=== PATIENT | male | born 1935 | race Caucasian/White ===

== ENCOUNTER 2020-08-25 13:37 | Inpatient (IN) | payer OTHER ==
[2020-08-25 13:45] VITALS: BMI 27.8
[2020-08-25 14:54] LABS: BASO % 0.5 % (0-2.0); EOS % 0.4 % (0-4.5); HEMATOCRIT 35.1 % (35.4-49); HEMOGLOBIN 11.6 GM/dL (11.7-16.9); LYMPH % 9.9 % (8-40); MCH 30.6 pg (25.7-33.7); MEAN CELL VOLUME 92.8 fl (80-96); MEAN PLT VOLUME 7.8 fl (7.5-11.1); MONO % 6.6 % (3.8-10.2); NEUT % 82.6 % (42.8-82.8); PLATELET COUNT 469 K/MM3 (134-434); RBC 3.78 M/mm3 (4.00-5.60); RDW 15.7 % (11.9-15.9); WHITE BLOOD COUNT 12.4 K/mm3 (4.0-10.0)
[2020-08-25 15:01] LABS: INR 1.77 (0.83-1.09); PROTHROMBIN TIME (PATIENT) 21.1 SEC (9.7-13.0)
[2020-08-25 15:03] LABS: ACTIVATED PTT 41.1 SECONDS (25.2-36.5)
[2020-08-25 15:14] LABS: CALCIUM 8.9 mg/dL (8.5-10.1)
[2020-08-25 15:15] LABS: ALBUMIN 2.2 g/dl (3.4-5.0); BLOOD UREA NITROGEN 29.8 mg/dL (7-18)
[2020-08-25 15:18] LABS: CREATININE 2.1 mg/dL (0.55-1.3)
[2020-08-25 15:19] LABS: BILIRUBIN,TOTAL 0.8 mg/dL (0.2-1); TOT PROT 7.8 g/dl (6.4-8.2)
[2020-08-25] MEDS ORDERED: ACETAMINOPHEN 1000 MG/100 ML BAG IVPB ONE (15:20)
[2020-08-25] MEDS ORDERED: SODIUM CHLORIDE 1,000 ML IV STA (15:20)
[2020-08-25] MEDS ORDERED: ACETAMINOPHEN INJECTION 100 ML IVPB ONE (15:48)
[2020-08-25] MEDS ORDERED: PIPERACILLIN/TAZOB 4.5 GM 4.5 GM in DEXTROSE 5%-WATER 100 ML IVPB ONE (16:57)
[2020-08-25] MEDS ORDERED: VANCOMYCIN 1,000 MG in DEXTROSE 5%-WATER - 250 ML IVPB ONE (16:57)
[2020-08-25 18:09] LABS: BF WBC & OTHER NUCLEATED CELLS 31800 /mm3
[2020-08-25] MEDS ORDERED: ACETAMINOPHEN 325 MG TABLET (FP) PO PRN (18:52)
[2020-08-25] MEDS ORDERED: PIPERACILLIN/TAZOB 4.5 GM 4.5 GM/100 ML BAG IVPB ONE (19:07)
[2020-08-25] MEDS ORDERED: VANCOMYCIN 1 GRAM (PRE-DOCKED) 1,000 MG/250 ML BAG IVPB ONE (19:07)
[2020-08-25 19:38] LABS: BODY FLUID MONOCYTE 9 %
[2020-08-25] MEDS: SEVELAMER CARBONATE 800 MG TAB (FP) PO SCH (22:49)
[2020-08-26] MEDS: ROSUVASTATIN CA 10 MG TABLET PO SCH ×2 (00:17→21:24)
[2020-08-26 00:50] LABS: EPI CELLS 7 /uL (0-25.1); HYALINE CASTS 1 /uL (0-3.1); PH,URINE 5.5 (5.0-8.0); URINE APPEARANCE CLEAR; URINE BACTERIA 23 /uL (0-1359); URINE BILIRUBIN NEGATIVE (NEGATIVE); URINE COLOR YELLOW; URINE GLUCOSE (UA) NEGATIVE (NEGATIVE); URINE KETONE NEGATIVE (NEGATIVE); URINE LEUK ESTERASE NEGATIVE (NEGATIVE); URINE NITRITE NEGATIVE (NEGATIVE); URINE PROTEIN 1+ (NEGATIVE); URINE RBC 28 /uL (0-23.9); URINE UROBILINOGEN 0.2 mg/dL (0.2-1.0); URINE WBC 7 /uL (0-25.8)
[2020-08-26] MEDS ORDERED: PIPERACILLIN/TAZOB 2.25 GM 2.25 GM/50 ML BAG IVPB ONE ×3 (01:44→17:36)
[2020-08-26] MEDS ORDERED: PIPERACILLIN/TAZOB 2.25 GM 2.25 GM in DEXTROSE 5%-WATER - 50 ML IVPB SCH (02:00)
[2020-08-26] MEDS: PIPERACILLIN/TAZOB 2.25 GM 2.25 GM in DEXTROSE 5%-WATER - 50 ML IVPB SCH ×3 (02:27→17:20)
[2020-08-26 07:52] LABS: BASO % 0.4 % (0-2.0); EOS % 1.1 % (0-4.5); HEMATOCRIT 31.1 % (35.4-49); HEMOGLOBIN 10.2 GM/dL (11.7-16.9); LYMPH % 10.4 % (8-40); MCH 30.4 pg (25.7-33.7); MCHC 32.8 g/dl (32.0-35.9); MEAN CELL VOLUME 92.7 fl (80-96); MEAN PLT VOLUME 7.4 fl (7.5-11.1); MONO % 5.9 % (3.8-10.2); NEUT % 82.2 % (42.8-82.8); PLATELET COUNT 448 K/MM3 (134-434); RBC 3.35 M/mm3 (4.00-5.60); RDW 15.8 % (11.9-15.9); WHITE BLOOD COUNT 12.2 K/mm3 (4.0-10.0)
[2020-08-26 07:58] LABS: CALCIUM 8.9 mg/dL (8.5-10.1)
[2020-08-26 07:59] LABS: ALBUMIN 2.2 g/dl (3.4-5.0); BLOOD UREA NITROGEN 28.3 mg/dL (7-18)
[2020-08-26 08:02] LABS: CREATININE 1.9 mg/dL (0.55-1.3); URIC ACID 6.1 mg/dL (2.6-7.2)
[2020-08-26 08:04] LABS: BILIRUBIN,TOTAL 0.5 mg/dL (0.2-1); TOT PROT 6.6 g/dl (6.4-8.2)
[2020-08-26] MEDS: SEVELAMER CARBONATE 800 MG TAB (FP) PO SCH ×3 (09:11→17:47)
[2020-08-26] MEDS ORDERED: LISINOPRIL 5 MG TABLET PO SCH (10:00)
[2020-08-26] MEDS: amLODIPine BESYLATE 5 MG TABLET (FP) PO SCH (10:13)
[2020-08-26 10:30] LABS: CRYSTALS,SYNOVIAL FLUID PRESENT
[2020-08-27] MEDS ORDERED: DEXTROSE 5%-WATER - 50 ML IVPB ONE ×2 (01:47→08:53)
[2020-08-27] MEDS ORDERED: PIPERACILLIN/TAZOBACTAM 2.25 GM VIAL IVPB ONE ×2 (01:47→08:52)
[2020-08-27] MEDS: PIPERACILLIN/TAZOB 2.25 GM 2.25 GM in DEXTROSE 5%-WATER - 50 ML IVPB SCH ×2 (01:55→09:35)
[2020-08-27 08:13] LABS: HEMOGLOBIN 11.2 GM/dl (11.7-16.9); MCH 30.2 pg (25.7-33.7); MCHC 32.8 g/dl (32.0-35.9); MEAN CELL VOLUME 92.1 fl (80-96); MEAN PLT VOLUME 7.3 fl (7.5-11.1); PLATELET COUNT 551 K/MM3 (134-434); RDW 14.7 % (11.9-15.9); WHITE BLOOD COUNT 10.8 K/mm3 (4.0-10.8)
[2020-08-27 08:17] LABS: ALBUMIN 2.3 g/dl (3.4-5.0); BILIRUBIN,TOTAL 0.5 mg/dl (0.2-1); CREATININE 2.2 mg/dl (0.55-1.3); TOT PROT 6.6 g/dl (6.4-8.2)
[2020-08-27] MEDS: SEVELAMER CARBONATE 800 MG TAB (FP) PO SCH ×3 (09:34→17:34)
[2020-08-27] MEDS: amLODIPine BESYLATE 5 MG TABLET (FP) PO SCH (09:35)
[2020-08-27 09:45] LABS: PLATELET ESTIMATE SLT INCREASE
[2020-08-27] MEDS ORDERED: COLCHICINE 0.6 MG CAP PO ONE (11:30)
[2020-08-27] MEDS: POLYETHYLENE GLYCOL 3350 119 GM BTL PO SCH ×2 (12:45→22:49)
[2020-08-27] MEDS: RIVAROXABAN 10 MG TABLET PO SCH (14:55)
[2020-08-27] MEDS: ROSUVASTATIN CA 10 MG TABLET PO SCH (22:49)
[2020-08-28 06:49] VITALS: BP 153/72; PULSE 69; TEMP 97.9
[2020-08-28] MEDS: SEVELAMER CARBONATE 800 MG TAB (FP) PO SCH (08:10)
[2020-08-28 08:22] LABS: BASO % 0.2 % (0-2.0); HEMATOCRIT 29.6 % (35.4-49); HEMOGLOBIN 10.1 GM/dl (11.7-16.9); LYMPH % 14.9 % (8-40); MCH 30.8 pg (25.7-33.7); MCHC 33.9 g/dl (32.0-35.9); MEAN CELL VOLUME 90.9 fl (80-96); MEAN PLT VOLUME 7.2 fl (7.5-11.1); MONO % 4.2 % (3.8-10.2); NEUT % 78.7 % (42.8-82.8); PLATELET COUNT 545 K/MM3 (134-434); RBC 3.26 M/mm3 (4.00-5.60); RDW 14.3 % (11.9-15.9); WHITE BLOOD COUNT 10.7 K/mm3 (4.0-10.8)
[2020-08-28 08:31] LABS: ALBUMIN 2.1 g/dl (3.4-5.0); BILIRUBIN,TOTAL 0.5 mg/dl (0.2-1); CALCIUM 8.6 mg/dl (8.5-10); MAGNESIUM 1.6 mg/dL (1.8-2.4); TOT PROT 5.7 g/dl (6.4-8.2)
[2020-08-28] MEDS ORDERED: MAGNESIUM SULF 50% (8.12 MEQ/2 ML-1 GM VIAL) IVPB ONE (09:42)
[2020-08-28] MEDS ORDERED: MAGNESIUM SULFATE IN WATER 2 GM/50 ML IVPB IVPB ONE (10:00)
[2020-08-28] MEDS ORDERED: COLCHICINE 0.6 MG TAB PO ONE (10:00)
[2020-08-28] MEDS ORDERED: LISINOPRIL 5 MG TABLET PO SCH (10:15)
[2020-08-28] MEDS ORDERED: HYDROCHLOROTHIAZIDE 25 MG TABLET (FP) PO SCH (10:15)
[2020-08-28] MEDS: RIVAROXABAN 10 MG TABLET PO SCH (10:43)
[2020-08-28] MEDS: amLODIPine BESYLATE 5 MG TABLET (FP) PO SCH (10:44)
[2020-08-28] MEDS: POLYETHYLENE GLYCOL 3350 119 GM BTL PO SCH (10:44)
[2020-08-28] MEDS ORDERED: PT OWN MED DRAWER 7, Y5N ONE (10:48)
== END 2020-08-28 15:23 | disposition home or self-care (01) | DRG 554 ==
LOC: JER 13:37 → JERBED 16:59 → FM/S 08-26 21:01
PROVIDERS: ADMIT Internal Medicine; ATTEND Nurse Practitioner Acute Care
PROC: 0S9D3ZX Drainage of Left Knee Joint, Percutaneous Approach, Diagnostic (ICD-10-PCS; principal; 2020-08-25)
DX: M10.9 Gout, unspecified (principal); E87.5 Hyperkalemia; I48.91 Unspecified atrial fibrillation; M25.462 Effusion, left knee; Z79.01 Long term (current) use of anticoagulants; E78.5 Hyperlipidemia, unspecified; I12.9 Hypertensive chronic kidney disease with stage 1 through stage 4 chronic kidney disease, or unspecified chronic kidney disease; N18.32 Chronic kidney disease, stage 3b; R29.6 Repeated falls
CPT/HCPCS: 36415; 71046-TC-FY; 73562-TC-LT-FY; 73660-TC-LT-FY; 73721-LT-TC; 76775-TC; 80053; 80061; 81003; 82728; 83036; 83605; 83615; 83721; 83735; 84132; 84443; 84484; 84550; 85025; 85610; 85651; 85730; 86140; 86850; 86900; 86901; 87040; 87070; 87075; 87086; 87205; 89060; 93005; 93010; 97116-GP; 97163-GP; 99285-25; C9803; G0480; J0131; U0003

== ENCOUNTER 2021-01-08 14:21 | Observation (INO) | payer OTHER ==
[2021-01-08 16:33] LABS: BASO % 0.6 % (0-2.0); EOS % 3.1 % (0-4.5); HEMATOCRIT 35.5 % (35.4-49); HEMOGLOBIN 11.8 GM/dL (11.7-16.9); LYMPH % 27.4 % (8-40); MCH 30.2 pg (25.7-33.7); MCHC 33.2 g/dl (32.0-35.9); MEAN CELL VOLUME 91.2 fl (80-96); MEAN PLT VOLUME 8.8 fl (7.5-11.1); MONO % 8.9 % (3.8-10.2); PLATELET COUNT 210 K/MM3 (134-434); RBC 3.89 M/mm3 (4.00-5.60); RDW 16.8 % (11.9-15.9)
[2021-01-08 17:06] LABS: ALBUMIN 3.5 g/dl (3.4-5.0); BLOOD UREA NITROGEN 66.2 mg/dL (7-18); CALCIUM 8.7 mg/dL (8.5-10.1)
[2021-01-08 17:10] LABS: BILIRUBIN,TOTAL 0.4 mg/dL (0.2-1); TOT PROT 6.7 g/dl (6.4-8.2)
[2021-01-08 17:13] LABS: N-TERMINAL BNP 2582.7 pg/ml (5-450)
[2021-01-08] MEDS ORDERED: CALCIUM GLUCONATE 10% - 1,000 MG/10 ML VIAL IVPUSH ONE (18:05)
[2021-01-08] MEDS ORDERED: INSULIN REGULAR HUMAN 100 UNITS/ML *VIAL IVPUSH ONE (18:05)
[2021-01-08] MEDS ORDERED: DEXTROSE 50%-WATER - 25 GM/50 ML VIAL IVPUSH ONE (18:06)
[2021-01-08] MEDS ORDERED: FUROSEMIDE 20 MG TABLET (FP) PO ONE (18:42)
[2021-01-08] MEDS ORDERED: CALCIUM GLUCONATE 10% - 1,000 MG/10 ML VIAL ONE (19:20)
[2021-01-08] MEDS ORDERED: SODIUM ZIRCONIUM CYCLOSILICATE (LOKELMA) 5 GM PACKET ONE (19:20)
[2021-01-08] MEDS ORDERED: DEXTROSE 50%-WATER 25 GM/50 ML DISP.SYRIN ONE (19:20)
[2021-01-08] MEDS ORDERED: INSULIN REGULAR HUMAN 100 UNITS/ML *VIAL ONE ×2 (19:21→19:23)
[2021-01-08] MEDS: SODIUM ZIRCONIUM CYCLOSILICATE (LOKELMA) 5 GM PACKET PO SCH (19:36)
[2021-01-09] MEDS ORDERED: HEPARIN NA (PORCINE) 5,000 UNITS/ML 1ML VIAL SQ SCH (02:00)
[2021-01-09 03:04] VITALS: BMI 25.9
[2021-01-09] MEDS ORDERED: amLODIPine BESYLATE 5 MG TABLET (FP) PO ONE (06:00)
[2021-01-09 08:57] LABS: BASO % 0.6 % (0-2.0); EOS % 3.2 % (0-4.5); HEMATOCRIT 35.5 % (35.4-49); HEMOGLOBIN 12.1 GM/dL (11.7-16.9); LYMPH % 22.7 % (8-40); MCH 30.4 pg (25.7-33.7); MEAN CELL VOLUME 89.6 fl (80-96); MONO % 8.9 % (3.8-10.2); NEUT % 64.6 % (42.8-82.8); PLATELET COUNT 213 K/MM3 (134-434); RBC 3.96 M/mm3 (4.00-5.60); RDW 17.1 % (11.9-15.9); WHITE BLOOD COUNT 6.5 K/mm3 (4.0-10.0)
[2021-01-09 09:17] LABS: CALCIUM 8.9 mg/dL (8.5-10.1)
[2021-01-09 09:18] LABS: ALBUMIN 3.3 g/dl (3.4-5.0); BLOOD UREA NITROGEN 64.1 mg/dL (7-18); MAGNESIUM 2.2 mg/dL (1.8-2.4)
[2021-01-09 09:20] LABS: CREATININE 2.7 mg/dL (0.55-1.3)
[2021-01-09 09:21] LABS: PHOSPHOROUS 4.2 mg/dL (2.5-4.9)
[2021-01-09 09:22] LABS: BILIRUBIN,TOTAL 0.6 mg/dL (0.2-1); TOT PROT 6.3 g/dl (6.4-8.2)
[2021-01-09] MEDS: SODIUM ZIRCONIUM CYCLOSILICATE (LOKELMA) 5 GM PACKET PO SCH (09:44)
[2021-01-09] MEDS: FUROSEMIDE 20 MG TABLET (FP) PO SCH (09:44)
[2021-01-09] MEDS: ROSUVASTATIN CA 10 MG TABLET (FP) PO SCH (09:44)
[2021-01-09] MEDS: APIXABAN 2.5 MG TABLET PO SCH ×2 (09:44→21:56)
[2021-01-09] MEDS ORDERED: amLODIPine BESYLATE 5 MG TABLET (FP) PO SCH (10:00)
[2021-01-09] MEDS ORDERED: RIVAROXABAN 10 MG TABLET PO SCH (10:00)
[2021-01-09] MEDS ORDERED: PT OWN MED DRAWER 7, Y5N ONE (10:33)
[2021-01-09] MEDS: COLCHICINE 0.6 MG TAB PO SCH (12:16)
[2021-01-09] MEDS: hydrALAZINE HCL 25 MG TABLET (FP) PO SCH ×2 (13:56→21:56)
[2021-01-10] MEDS: hydrALAZINE HCL 25 MG TABLET (FP) PO SCH ×2 (06:13→14:48)
[2021-01-10 07:25] LABS: BASO % 0.4 % (0-2.0); EOS % 2.8 % (0-4.5); HEMATOCRIT 36.8 % (35.4-49); HEMOGLOBIN 12.4 GM/dL (11.7-16.9); LYMPH % 31.2 % (8-40); MCH 30.3 pg (25.7-33.7); MCHC 33.8 g/dl (32.0-35.9); MEAN CELL VOLUME 89.9 fl (80-96); NEUT % 55.6 % (42.8-82.8); PLATELET COUNT 210 K/MM3 (134-434); RBC 4.09 M/mm3 (4.00-5.60); RDW 16.8 % (11.9-15.9); WHITE BLOOD COUNT 6.7 K/mm3 (4.0-10.0)
[2021-01-10 07:47] LABS: ALBUMIN 3.3 g/dl (3.4-5.0); BLOOD UREA NITROGEN 63.3 mg/dL (7-18)
[2021-01-10 07:50] LABS: CREATININE 2.8 mg/dL (0.55-1.3)
[2021-01-10 07:52] LABS: BILIRUBIN,TOTAL 0.4 mg/dL (0.2-1); TOT PROT 6.7 g/dl (6.4-8.2)
[2021-01-10] MEDS ORDERED: amLODIPine BESYLATE 5 MG TABLET (FP) PO SCH (10:00)
[2021-01-10] MEDS: FUROSEMIDE 20 MG TABLET (FP) PO SCH (11:01)
[2021-01-10] MEDS: APIXABAN 2.5 MG TABLET PO SCH (11:01)
[2021-01-10] MEDS: ROSUVASTATIN CA 10 MG TABLET (FP) PO SCH (11:01)
[2021-01-10] MEDS ORDERED: PT OWN MED DRAWER 7, Y5N ONE (11:06)
[2021-01-10] MEDS: COLCHICINE 0.6 MG TAB PO SCH (11:08)
[2021-01-10 16:06] VITALS: BP 139/87; PULSE 84; TEMP 98.6
== END 2021-01-10 19:10 | disposition home or self-care (01) ==
LOC: JER 14:21 → UNDOADMOB 16:08 → JERBED 16:08 → INTOOBSV 16:08 → J4W 01-09 02:17 → JERBED 01-09 02:17 → J4W 01-10 10:58 → JERBED 01-10 10:58
PROVIDERS: ATTEND Family Medicine
PROC: 3E033GC Introduction of Other Therapeutic Substance into Peripheral Vein, Percutaneous Approach (ICD-10-PCS; principal; 2021-01-10)
PROC: 3E033VG Introduction of Insulin into Peripheral Vein, Percutaneous Approach (ICD-10-PCS; 2021-01-10)
DX: I48.91 Unspecified atrial fibrillation (principal); I13.10 Hypertensive heart and chronic kidney disease without heart failure, with stage 1 through stage 4 chronic kidney disease, or unspecified chronic kidney disease; E78.5 Hyperlipidemia, unspecified; N18.30 Chronic kidney disease, stage 3 unspecified; I45.10 Unspecified right bundle-branch block; I49.5 Sick sinus syndrome; R79.89 Other specified abnormal findings of blood chemistry; E87.5 Hyperkalemia; M25.569 Pain in unspecified knee
CPT/HCPCS: 36415; 71045-TC-FY; 76775-TC; 80053; 82550; 83036; 83735; 83880; 84100; 84439; 84443; 84484; 85025; 93005; 93010; 96374; 96375; 97116-GP; 97161-GP; 99285-25; C9803; G0378; U0003; U0005

== ENCOUNTER 2022-04-22 22:34 | Inpatient (IN) | payer OTHER ==
[2022-04-23 00:51] LABS: BASO % 0.4 % (0-2.0); EOS % 1.2 % (0-4.5); HEMATOCRIT 36.2 % (35.4-49); HEMOGLOBIN 11.9 GM/dL (11.7-16.9); LYMPH % 14.4 % (8-40); MCH 31.2 pg (25.7-33.7); MCHC 32.9 g/dl (32.0-35.9); MEAN PLT VOLUME 8.1 fl (7.5-11.1); PLATELET COUNT 296 10^3/uL (134-434); RDW 17.3 % (11.9-15.9); WHITE BLOOD COUNT 9.3 K/mm3 (4.0-10.0)
[2022-04-23 01:03] LABS: URINE APPEARANCE CLEAR; URINE BILIRUBIN NEGATIVE (NEGATIVE); URINE COLOR YELLOW; URINE GLUCOSE (UA) NEGATIVE (NEGATIVE); URINE KETONE NEGATIVE (NEGATIVE); URINE LEUK ESTERASE NEGATIVE (NEGATIVE); URINE NITRITE NEGATIVE (NEGATIVE); URINE PROTEIN NEGATIVE (NEGATIVE); URINE UROBILINOGEN 0.2 mg/dL (0.2-1.0)
[2022-04-23 01:09] LABS: CHLORIDE 101 mmol/L (98-107); SODIUM 137 mmol/L (136-145)
[2022-04-23 01:11] LABS: CALCIUM 10.4 mg/dL (8.5-10.1)
[2022-04-23 01:12] LABS: ALBUMIN 3.6 g/dl (3.4-5.0); ANION GAP 7 MMOL/L (8-16); BLOOD UREA NITROGEN 65.2 mg/dL (7-18); CO2 29 mmol/L (21-32); GLUCOSE,RANDOM 154 mg/dL (74-106)
[2022-04-23 01:15] LABS: CREATININE 3.8 mg/dL (0.55-1.3); SGOT/AST 28 U/L (15-37); SGPT/ALT 19 U/L (13-61)
[2022-04-23 01:16] LABS: BILIRUBIN,TOTAL 0.5 mg/dL (0.2-1); TOT PROT 7.8 g/dl (6.4-8.2)
[2022-04-23 01:18] LABS: ALK PHOS 86 U/L (45-117)
[2022-04-23] MEDS ORDERED: LACTATED RINGERS SOLUTION 1000 ML INFUS.BAG IV ONE (01:31)
[2022-04-23] MEDS ORDERED: APIXABAN 2.5 MG TABLET ONE (10:10)
[2022-04-23] MEDS: APIXABAN 2.5 MG TABLET PO SCH (10:14)
[2022-04-24] MEDS: APIXABAN 2.5 MG TABLET PO SCH ×3 (01:10→22:00)
[2022-04-24] MEDS ORDERED: MELATONIN 5 MG TABLETS PO ONE (02:01)
[2022-04-24 04:11] VITALS: BMI 25.6
[2022-04-24 08:20] LABS: ALBUMIN 3.2 g/dl (3.4-5.0); CALCIUM 9.7 mg/dL (8.5-10.1)
[2022-04-24 08:23] LABS: CREATININE 3.1 mg/dL (0.55-1.3)
[2022-04-24 08:25] LABS: BILIRUBIN,TOTAL 0.4 mg/dL (0.2-1); TOT PROT 6.9 g/dl (6.4-8.2)
[2022-04-24] MEDS: amLODIPine BESYLATE 5 MG TABLET (FP) PO SCH (15:26)
[2022-04-24] MEDS: metoPROLOL SUCCINATE 25 MG TAB.SR.24H (FP) PO SCH (15:26)
[2022-04-24] MEDS ORDERED: ALBUTEROL SO4 HFA INHALER IH PRN (15:30)
[2022-04-24] MEDS: ACETAMINOPHEN 325 MG TABLET (FP) PO PRN (22:03)
[2022-04-24] MEDS: ATORVASTATIN CA 20 MG TABLET (FP) PO SCH (22:03)
[2022-04-25] MEDS: glipiZIDE-XL 2.5 MG TAB.ER.24 PO SCH (06:52)
[2022-04-25 07:29] LABS: BASO % 0.5 % (0-2.0); EOS % 4.3 % (0-4.5); HEMATOCRIT 34.5 % (35.4-49); HEMOGLOBIN 11.1 GM/dL (11.7-16.9); LYMPH % 27.1 % (8-40); MCH 31.3 pg (25.7-33.7); MCHC 32.2 g/dl (32.0-35.9); MEAN CELL VOLUME 97.2 fl (80-96); MEAN PLT VOLUME 8.4 fl (7.5-11.1); MONO % 8.5 % (3.8-10.2); NEUT % 59.6 % (42.8-82.8); PLATELET COUNT 248 10^3/uL (134-434); RBC 3.55 M/mm3 (4.00-5.60); RDW 17.5 % (11.9-15.9); WHITE BLOOD COUNT 6.5 K/mm3 (4.0-10.0)
[2022-04-25 08:00] LABS: CALCIUM 9.7 mg/dL (8.5-10.1)
[2022-04-25 08:01] LABS: ALBUMIN 3.1 g/dl (3.4-5.0)
[2022-04-25 08:03] LABS: CREATININE 3.3 mg/dL (0.55-1.3)
[2022-04-25 08:04] LABS: BILIRUBIN,TOTAL 0.4 mg/dL (0.2-1)
[2022-04-25 08:05] LABS: TOT PROT 6.5 g/dl (6.4-8.2)
[2022-04-25] MEDS: ACETAMINOPHEN 325 MG TABLET (FP) PO PRN ×2 (09:52→22:16)
[2022-04-25] MEDS: amLODIPine BESYLATE 5 MG TABLET (FP) PO SCH (09:53)
[2022-04-25] MEDS: metoPROLOL SUCCINATE 25 MG TAB.SR.24H (FP) PO SCH (09:53)
[2022-04-25] MEDS: APIXABAN 2.5 MG TABLET PO SCH ×2 (09:53→22:16)
[2022-04-25] MEDS: COLCHICINE 0.6 MG CAPSULE PO SCH (11:03)
[2022-04-25] MEDS: ATORVASTATIN CA 20 MG TABLET (FP) PO SCH (22:16)
[2022-04-26] MEDS: glipiZIDE-XL 2.5 MG TAB.ER.24 PO SCH (06:23)
[2022-04-26] MEDS: ACETAMINOPHEN 325 MG TABLET (FP) PO PRN (08:23)
[2022-04-26] MEDS: amLODIPine BESYLATE 5 MG TABLET (FP) PO SCH (09:28)
[2022-04-26] MEDS: APIXABAN 2.5 MG TABLET PO SCH ×2 (09:29→21:22)
[2022-04-26] MEDS: metoPROLOL SUCCINATE 25 MG TAB.SR.24H (FP) PO SCH (09:29)
[2022-04-26] MEDS ORDERED: COLCHICINE 0.6 MG TAB PO SCH (10:26)
[2022-04-26] MEDS: COLCHICINE 0.6 MG CAPSULE PO SCH (12:45)
[2022-04-26] MEDS: COLCHICINE 0.6 MG TAB PO SCH (12:46)
[2022-04-26] MEDS: ATORVASTATIN CA 20 MG TABLET (FP) PO SCH (21:22)
[2022-04-27] MEDS: glipiZIDE-XL 2.5 MG TAB.ER.24 PO SCH (06:09)
[2022-04-27 07:55] LABS: BASO % 0.5 % (0-2.0); EOS % 3.9 % (0-4.5); HEMATOCRIT 33.4 % (35.4-49); HEMOGLOBIN 10.8 GM/dL (11.7-16.9); LYMPH % 24.1 % (8-40); MCHC 32.3 g/dl (32.0-35.9); MEAN CELL VOLUME 96.1 fl (80-96); MEAN PLT VOLUME 8.3 fl (7.5-11.1); MONO % 6.7 % (3.8-10.2); NEUT % 64.8 % (42.8-82.8); PLATELET COUNT 255 10^3/uL (134-434); RBC 3.48 M/mm3 (4.00-5.60); RDW 17.7 % (11.9-15.9); WHITE BLOOD COUNT 7.6 K/mm3 (4.0-10.0)
[2022-04-27] MEDS: ACETAMINOPHEN 325 MG TABLET (FP) PO PRN ×2 (08:16→17:28)
[2022-04-27 08:57] LABS: CALCIUM 10.2 mg/dL (8.5-10.1)
[2022-04-27 08:58] LABS: ALBUMIN 3.3 g/dl (3.4-5.0); BLOOD UREA NITROGEN 65.9 mg/dL (7-18)
[2022-04-27 09:02] LABS: CREATININE 3.1 mg/dL (0.55-1.3); URIC ACID 9.2 mg/dL (2.6-7.2)
[2022-04-27 09:03] LABS: BILIRUBIN,TOTAL 0.3 mg/dL (0.2-1); TOT PROT 6.8 g/dl (6.4-8.2)
[2022-04-27] MEDS: COLCHICINE 0.6 MG TAB PO SCH (09:45)
[2022-04-27] MEDS: APIXABAN 2.5 MG TABLET PO SCH ×2 (09:46→21:25)
[2022-04-27] MEDS: amLODIPine BESYLATE 5 MG TABLET (FP) PO SCH (09:46)
[2022-04-27] MEDS: metoPROLOL SUCCINATE 25 MG TAB.SR.24H (FP) PO SCH ×2 (09:46→09:48)
[2022-04-27] MEDS: ATORVASTATIN CA 20 MG TABLET (FP) PO SCH (21:25)
[2022-04-28] MEDS: glipiZIDE-XL 2.5 MG TAB.ER.24 PO SCH (06:02)
[2022-04-28] MEDS: ACETAMINOPHEN 325 MG TABLET (FP) PO PRN ×2 (08:41→14:49)
[2022-04-28 09:13] LABS: CALCIUM 9.6 mg/dL (8.5-10.1)
[2022-04-28 09:14] LABS: BLOOD UREA NITROGEN 60.8 mg/dL (7-18)
[2022-04-28 09:16] LABS: URIC ACID 8.5 mg/dL (2.6-7.2)
[2022-04-28 09:17] LABS: CREATININE 2.6 mg/dL (0.55-1.3)
[2022-04-28 09:18] LABS: BILIRUBIN,TOTAL 0.3 mg/dL (0.2-1); TOT PROT 6.3 g/dl (6.4-8.2)
[2022-04-28 09:29] LABS: EOS % 4.7 % (0-4.5); HEMATOCRIT 31.6 % (35.4-49); HEMOGLOBIN 10.6 GM/dL (11.7-16.9); MCH 32.3 pg (25.7-33.7); MCHC 33.5 g/dl (32.0-35.9); MEAN CELL VOLUME 96.6 fl (80-96); MONO % 7.7 % (3.8-10.2); NEUT % 58.6 % (42.8-82.8); PLATELET COUNT 235 10^3/uL (134-434); RBC 3.27 M/mm3 (4.00-5.60); RDW 17.8 % (11.9-15.9); WHITE BLOOD COUNT 5.5 K/mm3 (4.0-10.0)
[2022-04-28] MEDS: amLODIPine BESYLATE 5 MG TABLET (FP) PO SCH (09:49)
[2022-04-28] MEDS: COLCHICINE 0.6 MG TAB PO SCH (09:49)
[2022-04-28] MEDS: metoPROLOL SUCCINATE 25 MG TAB.SR.24H (FP) PO SCH (09:50)
[2022-04-28] MEDS: APIXABAN 2.5 MG TABLET PO SCH ×2 (09:50→21:44)
[2022-04-28] MEDS: ATORVASTATIN CA 20 MG TABLET (FP) PO SCH (21:44)
[2022-04-29] MEDS: glipiZIDE-XL 2.5 MG TAB.ER.24 PO SCH (06:22)
[2022-04-29] MEDS: APIXABAN 2.5 MG TABLET PO SCH (09:10)
[2022-04-29] MEDS: COLCHICINE 0.6 MG TAB PO SCH (09:10)
[2022-04-29] MEDS: amLODIPine BESYLATE 5 MG TABLET (FP) PO SCH (09:10)
[2022-04-29] MEDS: ACETAMINOPHEN 325 MG TABLET (FP) PO PRN (09:12)
[2022-04-29] MEDS: metoPROLOL SUCCINATE 25 MG TAB.SR.24H (FP) PO SCH (11:23)
[2022-04-29 15:17] VITALS: BP 127/64; PULSE 50; RESP 18; TEMP 97.4
== END 2022-04-29 18:49 | DRG 683 ==
LOC: JER 22:34 → JERBED 04-23 01:57 → J4W 04-24 01:29
PROVIDERS: ADMIT Internal Medicine; ATTEND Family Medicine
DX: N17.9 Acute kidney failure, unspecified (principal); I13.0 Hypertensive heart and chronic kidney disease with heart failure and stage 1 through stage 4 chronic kidney disease, or unspecified chronic kidney disease; I50.32 Chronic diastolic (congestive) heart failure; I24.8 Other forms of acute ischemic heart disease; N18.4 Chronic kidney disease, stage 4 (severe); I48.0 Paroxysmal atrial fibrillation; E87.5 Hyperkalemia
CPT/HCPCS: 36415; 70450-TC; 71045-TC-FY; 72125-TC; 72170-TC-FY; 76775-TC; 80048; 80053; 80307; 81003; 84484; 84550; 85025; 93005; 93010; 93880-TC; 97116-GP; 97162-GP; 99285-25; C9803-CS; U0003; U0005

== ENCOUNTER 2022-06-22 15:26 | Observation (INO) | payer OTHER ==
[2022-06-22 15:32] VITALS: BMI 23.6
[2022-06-22 22:56] LABS: BASO % 0.7 % (0-2.0); EOS % 1.5 % (0-4.5); HEMATOCRIT 36.4 % (35.4-49); HEMOGLOBIN 12.1 GM/dL (11.7-16.9); LYMPH % 25.4 % (8-40); MCH 31.7 pg (25.7-33.7); MCHC 33.2 g/dl (32.0-35.9); MEAN CELL VOLUME 95.3 fl (80-96); MEAN PLT VOLUME 8.5 fl (7.5-11.1); MONO % 9.3 % (3.8-10.2); NEUT % 63.1 % (42.8-82.8); PLATELET COUNT 305 10^3/uL (134-434); RBC 3.82 M/mm3 (4.00-5.60); RDW 16.9 % (11.9-15.9); WHITE BLOOD COUNT 6.8 K/mm3 (4.0-10.0)
[2022-06-22 23:04] LABS: INR 1.46 (0.83-1.09); PROTHROMBIN TIME (PATIENT) 16.9 SEC (9.7-13.0)
[2022-06-22 23:07] LABS: ACTIVATED PTT 34.1 SECONDS (25.2-36.5); ALBUMIN 3.6 g/dl (3.4-5.0); BLOOD UREA NITROGEN 57.2 mg/dL (7-18); CALCIUM 10.1 mg/dL (8.5-10.1)
[2022-06-22 23:10] LABS: CREATININE 3.1 mg/dL (0.55-1.3)
[2022-06-22 23:12] LABS: BILIRUBIN,TOTAL 0.3 mg/dL (0.2-1); TOT PROT 7.4 g/dl (6.4-8.2)
[2022-06-23] MEDS: INSULIN SLIDING SCALE (NOVOLOG) 1 VIAL SQ SCH ×4 (07:21→21:20)
[2022-06-23 10:16] LABS: BASO % 1.1 % (0-2.0); EOS % 2.2 % (0-4.5); HEMATOCRIT 38.1 % (35.4-49); HEMOGLOBIN 12.3 GM/dL (11.7-16.9); LYMPH % 22.4 % (8-40); MCH 30.8 pg (25.7-33.7); MCHC 32.3 g/dl (32.0-35.9); MEAN CELL VOLUME 95.4 fl (80-96); MONO % 9.5 % (3.8-10.2); NEUT % 64.8 % (42.8-82.8); PLATELET COUNT 284 10^3/uL (134-434); RBC 3.99 M/mm3 (4.00-5.60); RDW 16.7 % (11.9-15.9); WHITE BLOOD COUNT 5.8 K/mm3 (4.0-10.0)
[2022-06-23 10:58] LABS: BLOOD UREA NITROGEN 57.2 mg/dL (7-18)
[2022-06-23 11:00] LABS: CALCIUM 9.8 mg/dL (8.5-10.1); MAGNESIUM 2.1 mg/dL (1.8-2.4); PHOSPHOROUS 4.5 mg/dL (2.5-4.9)
[2022-06-24] MEDS: INSULIN SLIDING SCALE (NOVOLOG) 1 VIAL SQ SCH ×4 (07:20→21:52)
[2022-06-24] MEDS: metoPROLOL SUCCINATE 25 MG TAB.SR.24H (FP) PO SCH (09:16)
[2022-06-24] MEDS: amLODIPine BESYLATE 5 MG TABLET (FP) PO SCH (09:16)
[2022-06-24] MEDS: CALCITRIOL 0.25 MCG CAPSULE (FP) PO SCH (09:16)
[2022-06-24] MEDS: APIXABAN 2.5 MG TABLET PO SCH ×2 (09:16→21:52)
[2022-06-24] MEDS: ATORVASTATIN CA 20 MG TABLET (FP) PO SCH (21:52)
[2022-06-25] MEDS: ACETAMINOPHEN 325 MG TABLET (FP) PO PRN (06:46)
[2022-06-25] MEDS: INSULIN SLIDING SCALE (NOVOLOG) 1 VIAL SQ SCH ×4 (06:51→21:49)
[2022-06-25] MEDS: CALCITRIOL 0.25 MCG CAPSULE (FP) PO SCH (10:41)
[2022-06-25] MEDS: APIXABAN 2.5 MG TABLET PO SCH ×2 (10:41→21:47)
[2022-06-25] MEDS: amLODIPine BESYLATE 5 MG TABLET (FP) PO SCH (10:41)
[2022-06-25] MEDS: metoPROLOL SUCCINATE 25 MG TAB.SR.24H (FP) PO SCH (10:41)
[2022-06-25] MEDS ORDERED: INSULIN (NOVOLOG) ASPART 100 UNITS/ML 10ML VIAL ONE (11:49)
[2022-06-25] MEDS: ATORVASTATIN CA 20 MG TABLET (FP) PO SCH (21:47)
[2022-06-26] MEDS: INSULIN SLIDING SCALE (NOVOLOG) 1 VIAL SQ SCH ×4 (06:22→21:55)
[2022-06-26] MEDS: ACETAMINOPHEN 325 MG TABLET (FP) PO PRN (07:05)
[2022-06-26] MEDS: metoPROLOL SUCCINATE 25 MG TAB.SR.24H (FP) PO SCH (09:53)
[2022-06-26] MEDS: APIXABAN 2.5 MG TABLET PO SCH ×2 (09:53→21:55)
[2022-06-26] MEDS: amLODIPine BESYLATE 5 MG TABLET (FP) PO SCH (09:53)
[2022-06-26] MEDS: CALCITRIOL 0.25 MCG CAPSULE (FP) PO SCH (09:53)
[2022-06-26] MEDS: ATORVASTATIN CA 20 MG TABLET (FP) PO SCH (21:55)
[2022-06-27] MEDS: INSULIN SLIDING SCALE (NOVOLOG) 1 VIAL SQ SCH ×4 (06:02→22:32)
[2022-06-27] MEDS: ACETAMINOPHEN 325 MG TABLET (FP) PO PRN (10:12)
[2022-06-27] MEDS: amLODIPine BESYLATE 5 MG TABLET (FP) PO SCH (10:13)
[2022-06-27] MEDS: APIXABAN 2.5 MG TABLET PO SCH ×2 (10:13→22:31)
[2022-06-27] MEDS: CALCITRIOL 0.25 MCG CAPSULE (FP) PO SCH (10:13)
[2022-06-27] MEDS: metoPROLOL SUCCINATE 25 MG TAB.SR.24H (FP) PO SCH (10:16)
[2022-06-27] MEDS ORDERED: metoPROLOL SUCCINATE 25 MG TAB.SR.24H (FP) PO SCH (10:20)
[2022-06-27] MEDS ORDERED: INSULIN (NOVOLOG) ASPART 100 UNITS/ML 10ML VIAL ONE (11:24)
[2022-06-27 15:51] VITALS: RESP 18
[2022-06-27] MEDS: ATORVASTATIN CA 20 MG TABLET (FP) PO SCH (22:31)
[2022-06-28] MEDS: INSULIN SLIDING SCALE (NOVOLOG) 1 VIAL SQ SCH ×2 (06:30→11:19)
[2022-06-28] MEDS: APIXABAN 2.5 MG TABLET PO SCH (09:58)
[2022-06-28] MEDS: CALCITRIOL 0.25 MCG CAPSULE (FP) PO SCH (09:58)
[2022-06-28] MEDS: amLODIPine BESYLATE 5 MG TABLET (FP) PO SCH (09:58)
[2022-06-28] MEDS: ACETAMINOPHEN 325 MG TABLET (FP) PO PRN (09:59)
[2022-06-28 16:34] VITALS: BP 142/66; PULSE 91; TEMP 97.8
== END 2022-06-28 16:42 ==
LOC: JER 15:26 → INTOOBSV 19:45 → JERBED 19:45 → J8W 06-23 05:27
PROVIDERS: ADMIT Internal Medicine; ATTEND Family Medicine
DX: I13.0 Hypertensive heart and chronic kidney disease with heart failure and stage 1 through stage 4 chronic kidney disease, or unspecified chronic kidney disease (principal); R77.8 Other specified abnormalities of plasma proteins; R00.1 Bradycardia, unspecified; R62.7 Adult failure to thrive; E09.22 Drug or chemical induced diabetes mellitus with diabetic chronic kidney disease; N18.9 Chronic kidney disease, unspecified; I50.9 Heart failure, unspecified; I45.10 Unspecified right bundle-branch block; R53.1 Weakness; Z79.01 Long term (current) use of anticoagulants; R26.2 Difficulty in walking, not elsewhere classified; E78.5 Hyperlipidemia, unspecified; N17.9 Acute kidney failure, unspecified
CPT/HCPCS: 36415; 70450-TC; 71045-TC-FY; 80048; 80053; 82962; 83735; 84100; 84484; 85025; 85610; 85730; 93005; 93010; 97116-GP; 97161-GP; 99285-25; C9803-CS; G0378; U0003; U0005

== ENCOUNTER 2022-09-27 15:39 | Inpatient (IN) | payer OTHER ==
[2022-09-27 16:16] VITALS: BMI 29.0
[2022-09-27 17:31] LABS: BASO % 0.6 % (0-2.0); HEMATOCRIT 26.1 % (35.4-49); HEMOGLOBIN 8.2 GM/dL (11.7-16.9); LYMPH % 11.6 % (8-40); MCH 27.7 pg (25.7-33.7); MCHC 31.5 g/dl (32.0-35.9); MEAN CELL VOLUME 88.1 fl (80-96); MEAN PLT VOLUME 7.7 fl (7.5-11.1); MONO % 10.4 % (3.8-10.2); NEUT % 76.4 % (42.8-82.8); PLATELET COUNT 335 10^3/uL (134-434); RBC 2.97 M/mm3 (4.00-5.60); RDW 19.8 % (11.9-15.9); WHITE BLOOD COUNT 7.8 K/mm3 (4.0-10.0)
[2022-09-27 17:37] LABS: INR 1.84 (0.83-1.09); PROTHROMBIN TIME (PATIENT) 21.2 SEC (9.7-13.0)
[2022-09-27 17:40] LABS: ACTIVATED PTT 34.5 SECONDS (25.2-36.5)
[2022-09-27 17:52] LABS: CHLORIDE 106 mmol/L (98-107); SODIUM 140 mmol/L (136-145)
[2022-09-27 17:54] LABS: ALBUMIN 2.4 g/dl (3.4-5.0); ANION GAP 11 MMOL/L (8-16); BLOOD UREA NITROGEN 53.2 mg/dL (7-18); CALCIUM 8.5 mg/dL (8.5-10.1); CO2 23 mmol/L (21-32); GLUCOSE,RANDOM 81 mg/dL (74-106)
[2022-09-27 17:55] LABS: EPI CELLS 6 /uL (0-25.1); HYALINE CASTS 1 /uL (0-3.1); PH,URINE 5.5 (5.0-8.0); URINE APPEARANCE CLEAR; URINE BACTERIA 1 /uL (0-1359); URINE BILIRUBIN NEGATIVE (NEGATIVE); URINE COLOR DK YELLOW; URINE GLUCOSE (UA) NEGATIVE (NEGATIVE); URINE KETONE NEGATIVE (NEGATIVE); URINE LEUK ESTERASE TRACE (NEGATIVE); URINE NITRITE NEGATIVE (NEGATIVE); URINE PROTEIN 2+ (NEGATIVE); URINE RBC 19 /uL (0-23.9); URINE UROBILINOGEN 0.2 mg/dL (0.2-1.0); URINE WBC 32 /uL (0-25.8)
[2022-09-27 17:57] LABS: SGOT/AST 50 U/L (15-37); SGPT/ALT 19 U/L (13-61)
[2022-09-27 17:58] LABS: CREATININE 3.1 mg/dL (0.55-1.3)
[2022-09-27 17:59] LABS: BILIRUBIN,TOTAL 0.4 mg/dL (0.2-1); TOT PROT 5.7 g/dl (6.4-8.2)
[2022-09-27 18:00] LABS: ALK PHOS 96 U/L (45-117)
[2022-09-27 18:02] LABS: N-TERMINAL BNP 6320.2 pg/ml (5-450)
[2022-09-27 18:49] LABS: CALCIUM 8.6 mg/dL (8.5-10.1)
[2022-09-27 18:50] LABS: BLOOD UREA NITROGEN 52.8 mg/dL (7-18)
[2022-09-27 18:53] LABS: CREATININE 2.8 mg/dL (0.55-1.3)
[2022-09-27] MEDS ORDERED: AZITHROMYCIN IVPB 500 MG in DEXTROSE 5%-WATER - 250 ML IVPB ONE (19:13)
[2022-09-27] MEDS ORDERED: CEFTRIAXONE 1 GM in DEXTROSE 5%-WATER - 100 ML IVPB ONE (19:17)
[2022-09-27] MEDS ORDERED: CEFTRIAXONE 1 GM/50 ML BAG ONE (19:24)
[2022-09-27] MEDS ORDERED: AZITHROMYCIN IVPB 500 MG/250 ML BAG IVPB ONE (19:24)
[2022-09-28] MEDS ORDERED: DEXTROSE 5%-NORMAL SALINE 1,000 ML IV SCH (06:15)
[2022-09-28 10:10] LABS: BASO % 0.6 % (0-2.0); EOS % 2.2 % (0-4.5); HEMATOCRIT 27.6 % (35.4-49); HEMOGLOBIN 8.6 GM/dL (11.7-16.9); LYMPH % 14.5 % (8-40); MCH 27.3 pg (25.7-33.7); MCHC 31.3 g/dl (32.0-35.9); MEAN CELL VOLUME 87.2 fl (80-96); MEAN PLT VOLUME 7.9 fl (7.5-11.1); MONO % 8.7 % (3.8-10.2); PLATELET COUNT 357 10^3/uL (134-434); RBC 3.17 M/mm3 (4.00-5.60); RDW 19.8 % (11.9-15.9); WHITE BLOOD COUNT 6.5 K/mm3 (4.0-10.0)
[2022-09-28 10:26] LABS: CHLORIDE 109 mmol/L (98-107); SODIUM 144 mmol/L (136-145)
[2022-09-28 10:27] LABS: CALCIUM 8.8 mg/dL (8.5-10.1)
[2022-09-28 10:28] LABS: ANION GAP 10 MMOL/L (8-16); CO2 26 mmol/L (21-32); MAGNESIUM 2.3 mg/dL (1.8-2.4)
[2022-09-28 10:31] LABS: CREATININE 2.7 mg/dL (0.55-1.3); PHOSPHOROUS 4.8 mg/dL (2.5-4.9)
[2022-09-28 10:55] LABS: GLUCOSE,RANDOM 39 mg/dL (74-106)
[2022-09-28] MEDS ORDERED: DEXTROSE 50%-WATER 25 GM/50 ML DISP.SYRIN IVPUSH ONE (11:10)
[2022-09-28] MEDS ORDERED: DEXTROSE 50%-WATER 25 GM/50 ML DISP.SYRIN ONE (11:11)
[2022-09-28] MEDS ORDERED: DEXTROSE 50%-WATER - 25 GM/50 ML VIAL IVPUSH PRN (11:20)
[2022-09-28] MEDS ORDERED: DEXTROSE 50%-WATER - 25 GM/50 ML VIAL IVPUSH ONE (11:20)
[2022-09-28] MEDS: DEXTROSE 5%-0.45% SALINE 1,000 ML IV SCH (12:14)
[2022-09-28] MEDS: CEFTRIAXONE 1 GM in DEXTROSE 5%-WATER - 50 ML IVPB SCH (14:37)
[2022-09-28] MEDS: AZITHROMYCIN IVPB 500 MG/250 ML BAG IVPB SCH (14:39)
[2022-09-28] MEDS: INSULIN SLIDING SCALE (NOVOLOG) 1 VIAL SQ SCH (16:37)
[2022-09-28] MEDS: FUROSEMIDE 40 MG/4 ML INJECTABLE VIAL IVPUSH SCH (17:17)
[2022-09-28] MEDS ORDERED: INSULIN (NOVOLOG) ASPART 100 UNITS/ML 10ML VIAL ONE (21:54)
[2022-09-29] MEDS: INSULIN SLIDING SCALE (NOVOLOG) 1 VIAL SQ SCH ×5 (00:05→21:52)
[2022-09-29] MEDS ORDERED: LORazepam 2 MG/ML SDV VIAL IVPUSH ONE (01:27)
[2022-09-29] MEDS ORDERED: LORazepam 2 MG/ML SDV VIAL IM ONE (03:01)
[2022-09-29] MEDS: CEFTRIAXONE 1 GM in DEXTROSE 5%-WATER - 50 ML IVPB SCH (12:41)
[2022-09-29] MEDS: AZITHROMYCIN IVPB 500 MG/250 ML BAG IVPB SCH (12:41)
[2022-09-29] MEDS: FUROSEMIDE 40 MG/4 ML INJECTABLE VIAL IVPUSH SCH (12:43)
[2022-09-29] MEDS: DEXTROSE 5%-0.45% SALINE 1,000 ML IV SCH (12:47)
[2022-09-30] MEDS: INSULIN SLIDING SCALE (NOVOLOG) 1 VIAL SQ SCH ×5 (06:33→23:22)
[2022-09-30] MEDS: DEXTROSE 5%-0.45% SALINE 1,000 ML IV SCH ×2 (06:47→17:17)
[2022-09-30] MEDS: FUROSEMIDE 40 MG/4 ML INJECTABLE VIAL IVPUSH SCH (10:43)
[2022-09-30] MEDS: CEFTRIAXONE 1 GM in DEXTROSE 5%-WATER - 50 ML IVPB SCH (10:43)
[2022-09-30] MEDS: AZITHROMYCIN IVPB 500 MG/250 ML BAG IVPB SCH (10:43)
[2022-09-30] MEDS: APIXABAN 2.5 MG TABLET PO SCH ×2 (10:43→22:49)
[2022-09-30] MEDS: METOPROLOL TARTRATE 25 MG TABLET (FP) PO SCH ×2 (10:44→22:49)
[2022-09-30 12:41] LABS: BASO % 0.3 % (0-2.0); EOS % 0.7 % (0-4.5); HEMATOCRIT 26.2 % (35.4-49); HEMOGLOBIN 8.4 GM/dL (11.7-16.9); LYMPH % 11.2 % (8-40); MCH 27.6 pg (25.7-33.7); MCHC 32.2 g/dl (32.0-35.9); MEAN CELL VOLUME 85.8 fl (80-96); MEAN PLT VOLUME 7.5 fl (7.5-11.1); MONO % 8.9 % (3.8-10.2); NEUT % 78.9 % (42.8-82.8); PLATELET COUNT 351 10^3/uL (134-434); RBC 3.05 M/mm3 (4.00-5.60); RDW 19.8 % (11.9-15.9); WHITE BLOOD COUNT 5.5 K/mm3 (4.0-10.0)
[2022-09-30] MEDS: ATORVASTATIN CA 20 MG TABLET (FP) PO SCH (22:49)
[2022-10-01] MEDS: INSULIN SLIDING SCALE (NOVOLOG) 1 VIAL SQ SCH ×4 (06:13→22:06)
[2022-10-01] MEDS: DEXTROSE 5%-0.45% SALINE 1,000 ML IV SCH ×2 (06:13→15:22)
[2022-10-01 09:04] LABS: CALCIUM 8.9 mg/dL (8.5-10.1)
[2022-10-01 09:05] LABS: ALBUMIN 2.3 g/dl (3.4-5.0)
[2022-10-01 09:08] LABS: CREATININE 2.1 mg/dL (0.55-1.3)
[2022-10-01 09:10] LABS: BILIRUBIN,TOTAL 0.3 mg/dL (0.2-1); TOT PROT 5.5 g/dl (6.4-8.2)
[2022-10-01] MEDS: CEFTRIAXONE 1 GM in DEXTROSE 5%-WATER - 50 ML IVPB SCH (09:40)
[2022-10-01] MEDS: APIXABAN 2.5 MG TABLET PO SCH ×2 (09:41→22:06)
[2022-10-01] MEDS: METOPROLOL TARTRATE 25 MG TABLET (FP) PO SCH ×2 (09:41→22:05)
[2022-10-01] MEDS: FUROSEMIDE 40 MG/4 ML INJECTABLE VIAL IVPUSH SCH (09:41)
[2022-10-01] MEDS: AZITHROMYCIN IVPB 500 MG/250 ML BAG IVPB SCH (09:41)
[2022-10-01] MEDS ORDERED: DEXTROSE 50%-WATER - 25 GM/50 ML VIAL IVPUSH PRN (14:22)
[2022-10-01] MEDS ORDERED: INSULIN (LEVEMIR) 100 UNITS/ML UNITS SQ ONE (16:41)
[2022-10-01] MEDS ORDERED: INSULIN (NOVOLOG) ASPART 100 UNITS/ML 10ML VIAL ONE (16:41)
[2022-10-01] MEDS ORDERED: GLYCERIN 1 RECTAL SUPPOSITORY, ADULT RC PRN (17:27)
[2022-10-01] MEDS: POLYETHYLENE GLYCOL (HEALTHYLAX) 3350 17 GM PACKET PO SCH (18:17)
[2022-10-01] MEDS ORDERED: DOCUSATE SODIUM 100 MG CAPSULE (FP) PO SCH (22:00)
[2022-10-01] MEDS: ATORVASTATIN CA 20 MG TABLET (FP) PO SCH (22:05)
[2022-10-02 02:15] VITALS: RESP 18
[2022-10-02] MEDS: INSULIN SLIDING SCALE (NOVOLOG) 1 VIAL SQ SCH ×3 (06:14→16:41)
[2022-10-02] MEDS: APIXABAN 2.5 MG TABLET PO SCH (09:46)
[2022-10-02] MEDS: AZITHROMYCIN IVPB 500 MG/250 ML BAG IVPB SCH (09:46)
[2022-10-02] MEDS: CEFTRIAXONE 1 GM in DEXTROSE 5%-WATER - 50 ML IVPB SCH (09:46)
[2022-10-02] MEDS: METOPROLOL TARTRATE 25 MG TABLET (FP) PO SCH (09:46)
[2022-10-02] MEDS: FUROSEMIDE 40 MG/4 ML INJECTABLE VIAL IVPUSH SCH (09:46)
[2022-10-02 15:49] VITALS: BP 152/81; PULSE 70; TEMP 98.1
[2022-10-02] MEDS: POLYETHYLENE GLYCOL (HEALTHYLAX) 3350 17 GM PACKET PO SCH (16:38)
== END 2022-10-02 20:23 | DRG 193 ==
LOC: JER 15:39 → JERBED 20:47 → J7W 09-28 01:05
PROVIDERS: ADMIT Internal Medicine; ATTEND Family Medicine
DX: J18.9 Pneumonia, unspecified organism (principal); G93.41 Metabolic encephalopathy; I13.0 Hypertensive heart and chronic kidney disease with heart failure and stage 1 through stage 4 chronic kidney disease, or unspecified chronic kidney disease; I50.32 Chronic diastolic (congestive) heart failure; N18.4 Chronic kidney disease, stage 4 (severe); N17.9 Acute kidney failure, unspecified; I24.8 Other forms of acute ischemic heart disease; R44.3 Hallucinations, unspecified; F03.911 Unspecified dementia, unspecified severity, with agitation; E11.22 Type 2 diabetes mellitus with diabetic chronic kidney disease; I48.91 Unspecified atrial fibrillation; I27.20 Pulmonary hypertension, unspecified; E78.5 Hyperlipidemia, unspecified; E11.649 Type 2 diabetes mellitus with hypoglycemia without coma; D64.9 Anemia, unspecified; R13.10 Dysphagia, unspecified; N28.89 Other specified disorders of kidney and ureter
CPT/HCPCS: 0241U-QW; 36415; 70450-TC; 71045-TC-FY; 74176-TC; 80048; 80053; 81003; 82272; 82962; 83036; 83735; 83880; 84100; 84439; 84443; 84484; 85025; 85610; 85730; 86850; 86900; 86901; 87086; 87899; 93005; 93010; 99285-25; C9803-CS; U0003; U0005

== ENCOUNTER 2022-12-28 09:21 | Emergency (ER) | payer OTHER ==
[2022-12-28 09:27] VITALS: BMI 24.7
[2022-12-28] MEDS ORDERED: ACETAMINOPHEN 325 MG TABLET (FP) PO ONE (11:13)
[2022-12-28] MEDS ORDERED: ACETAMINOPHEN 325 MG TABLET (FP) ONE (11:36)
[2022-12-28 18:55] VITALS: BP 169/102; PULSE 92; RESP 18; TEMP 97.6
== END 2022-12-28 18:55 | disposition home or self-care (01) ==
LOC: JER 09:21
DX: S69.92XA Unspecified injury of left wrist, hand and finger(s), initial encounter (principal); W06.XXXA Fall from bed, initial encounter
CPT/HCPCS: 73110-TC-LT-FY; 73130-TC-LT-FY; 73630-TC-LT; 99284-25

== ENCOUNTER 2023-01-06 04:07 | Day surgery (SDC) | payer OTHER ==
[2023-01-05 09:52] VITALS: BMI 21.1
[~2023-01-06 04:07] MED LIST: ACETAMINOPHEN 325 MG TABLET (FP) PO PRN; CYCLOPENTOLATE HCL 1% OPHTH SOLN 2 ML BOTTLE OP SCH; KETOROLAC TROMETHAMINE 0.5% EYE DROP 1 DROP DROPS OP SCH; OFLOXACIN 0.3% OPHTHALMIC SOLUTION 5 ML BOTTLE OP SCH; PHENYLEPHRINE 2.5% OPHTH SOLN 15 ML BOTTLE OP SCH; TROPICAMIDE 1% OPHTH SOLN 15 ML BOTTLE OP SCH
[2023-01-06] MEDS ORDERED: VANCOMYCIN 500 MG VIAL (RESTRICTED TO ID ONLY) ONE (07:12)
[2023-01-06] MEDS ORDERED: BUPIVACAINE HCL/PF 0.75% 10 ML VIAL ONE (07:12)
[2023-01-06] MEDS ORDERED: EPINEPHrine/PF 1 MG/1 ML (1:1,000) AMPULE ONE (07:12)
[2023-01-06] MEDS ORDERED: LIDOCAINE HCL 2% (20ML MULTI-DOSE VIAL) ONE (07:13)
[2023-01-06] MEDS ORDERED: LIDOCAINE HCL/PF 1% SDV 5ML VIAL ONE (07:13)
[2023-01-06] MEDS ORDERED: POVIDONE-IODINE 5% OPHTHALMIC PREP 30 ML SOLUTION ONE (07:14)
[2023-01-06] MEDS ORDERED: TRYPAN BLUE 0.5 ML DISP.SYRIN ONE (07:14)
[2023-01-06] MEDS ORDERED: KETOROLAC TROMETHAMINE 0.5% EYE DROP 1 DROP DROPS ONE (07:19)
[2023-01-06] MEDS ORDERED: OFLOXACIN 0.3% OPHTHALMIC SOLUTION 5 ML BOTTLE ONE (07:19)
[2023-01-06] MEDS ORDERED: TROPICAMIDE 1% 3 ML EYE DROPS ONE (07:19)
[2023-01-06] MEDS ORDERED: PHENYLEPHRINE 2.5% OPTHALMIC DROP 2ML BOTTLE ONE (07:19)
[2023-01-06] MEDS ORDERED: CYCLOPENTOLATE HCL 1% OPHTH SOLN 2 ML BOTTLE ONE (07:19)
[2023-01-06 07:50] VITALS: RESP 18
[2023-01-06] MEDS ORDERED: PROPOFOL 20 ML ONE (08:55)
[2023-01-06] MEDS ORDERED: LIDOCAINE HCL/PF 2% SDV 5ML VIAL ONE (08:56)
[2023-01-06] MEDS ORDERED: PHENYLEPHRINE/KETOROLAC 4 ML VIAL IO ONE ×2 (09:05→09:28)
[2023-01-06] MEDS ORDERED: BUPIVACAINE HCL/PF 0.75% 10 ML VIAL RB ONE (09:13)
[2023-01-06] MEDS ORDERED: LIDOCAINE HCL/PF 2% SDV 5ML VIAL INF ONE (09:13)
[2023-01-06] MEDS ORDERED: POVIDONE-IODINE 5% OPHTHALMIC PREP 30 ML SOLUTION OS ONE (09:16)
[2023-01-06] MEDS ORDERED: BSS (NA/CA/MG/K) BALANCED SALT SOLUTION OPHTH SOLN 15 ML BOTTLE IO ONE (09:20)
[2023-01-06] MEDS ORDERED: LIDOCAINE HCL 1% PRESERVATIVE FREE - 30ML VIAL IO ONE (09:21)
[2023-01-06] MEDS ORDERED: TRYPAN BLUE 0.5 ML DISP.SYRIN IO ONE (09:22)
[2023-01-06] MEDS ORDERED: CHONDROITIN SU A/HYALUR SOD 1 KIT IO ONE (09:23)
[2023-01-06] MEDS ORDERED: METOPROLOL TARTRATE 5 MG/5 ML VIAL ONE (09:33)
[2023-01-06 10:10] VITALS: TEMP 97.8
[2023-01-06 11:30] VITALS: BP 151/79; PULSE 72
== END 2023-01-06 11:10 ==
LOC: JASU-SURG 04:07
PROVIDERS: ATTEND Ophthalmology
PROC: 08RK3JZ Replacement of Left Lens with Synthetic Substitute, Percutaneous Approach (ICD-10-PCS; principal; 2023-01-06 09:00)
DX: H25.89 Other age-related cataract (principal); H57.03 Miosis
CPT/HCPCS: J1097; V2632

== ENCOUNTER 2023-01-23 23:46 | Inpatient (IN) | payer OTHER ==
[2023-01-23] MEDS ORDERED: CALCIUM GLUCONATE 10% - 1,000 MG/10 ML VIAL IVPUSH ONE (23:58)
[2023-01-24] MEDS ORDERED: CALCIUM GLUC IN NACL, ISO-OSM 1 GM/50 ML BAG IVPB ONE (00:01)
[2023-01-24 00:11] LABS: EOS % 0.5 % (0-4.5); HEMATOCRIT 29.3 % (35.4-49); HEMOGLOBIN 8.8 GM/dL (11.7-16.9); LYMPH % 7.8 % (8-40); MCH 26.8 pg (25.7-33.7); MCHC 30.2 g/dl (32.0-35.9); MEAN CELL VOLUME 88.8 fl (80-96); MEAN PLT VOLUME 7.5 fl (7.5-11.1); MONO % 3.6 % (3.8-10.2); NEUT % 87.1 % (42.8-82.8); PLATELET COUNT 472 10^3/uL (134-434); RDW 19.5 % (11.9-15.9); WHITE BLOOD COUNT 12.3 K/mm3 (4.0-10.0)
[2023-01-24 00:20] LABS: INR 1.86 (0.83-1.09); PROTHROMBIN TIME (PATIENT) 21.4 SEC (9.7-13.0)
[2023-01-24 00:23] LABS: ACTIVATED PTT 32.2 SECONDS (25.2-36.5)
[2023-01-24 01:07] LABS: POTASSIUM 5.8 mmol/L (3.5-5.1)
[2023-01-24 01:09] LABS: CALCIUM 9.3 mg/dL (8.5-10.1)
[2023-01-24 01:10] LABS: ALBUMIN 2.3 g/dl (3.4-5.0); BLOOD UREA NITROGEN 74.8 mg/dL (7-18)
[2023-01-24 01:15] LABS: BILIRUBIN,TOTAL 0.2 mg/dL (0.2-1); TOT PROT 6.8 g/dl (6.4-8.2)
[2023-01-24] MEDS ORDERED: INSULIN REGULAR HUMAN 100 UNITS/ML *VIAL IVPUSH ONE ×2 (01:52→13:48)
[2023-01-24] MEDS ORDERED: DEXTROSE 50%-WATER - 25 GM/50 ML VIAL IVPUSH ONE ×2 (01:53→13:48)
[2023-01-24] MEDS ORDERED: DEXTROSE 50%-WATER 25 GM/50 ML DISP.SYRIN ONE ×2 (02:05→14:40)
[2023-01-24] MEDS: ALBUTEROL SO4 2.5/IPRATROPIUM 0.5 INH SOL 3 ML VIAL.NEB. NEB SCH ×4 (02:15→03:00)
[2023-01-24 02:37] LABS: MAGNESIUM 2.2 mg/dL (1.8-2.4)
[2023-01-24] MEDS ORDERED: VANCOMYCIN 1 GM in D5W (PRE-DOCKED) 1,000 MG/250 ML (RESTRICTED TO ID ONLY IVPB ONE (02:38)
[2023-01-24] MEDS ORDERED: PIPERACILLIN/TAZOB 4.5 GM 4.5 GM in DEXTROSE 5%-WATER 100 ML IVPB ONE (02:40)
[2023-01-24] MEDS ORDERED: VANCOMYCIN/WATER FOR INJ (PEG) 1,000 MG/200 ML BAG IVPB ONE (03:18)
[2023-01-24] MEDS ORDERED: PIPERACILLIN/TAZOB 4.5 GM 4.5 GM/100 ML BAG IVPB ONE (03:18)
[2023-01-24 03:21] LABS: EPI CELLS 15 /uL (0-25.1); HYALINE CASTS 2 /uL (0-3.1); URINE APPEARANCE CLEAR; URINE BACTERIA 1 /uL (0-1359); URINE BILIRUBIN NEGATIVE (NEGATIVE); URINE COLOR YELLOW; URINE GLUCOSE (UA) NEGATIVE (NEGATIVE); URINE KETONE NEGATIVE (NEGATIVE); URINE LEUK ESTERASE NEGATIVE (NEGATIVE); URINE NITRITE NEGATIVE (NEGATIVE); URINE PROTEIN 2+ (NEGATIVE); URINE RBC 15 /uL (0-23.9); URINE UROBILINOGEN 0.2 mg/dL (0.2-1.0); URINE WBC 14 /uL (0-25.8)
[2023-01-24 04:25] LABS: BLOOD UREA NITROGEN 75.4 mg/dL (7-18); CALCIUM 9.1 mg/dL (8.5-10.1); CREATININE 3.3 mg/dL (0.55-1.3); MAGNESIUM 2.2 mg/dL (1.8-2.4); POTASSIUM 5.1 mmol/L (3.5-5.1)
[2023-01-24] MEDS ORDERED: FUROSEMIDE 40 MG/4 ML INJECTABLE VIAL IVPUSH ONE (04:57)
[2023-01-24] MEDS ORDERED: ASPIRIN 81 MG CHEWABLE TABLETS PO ONE (04:58)
[2023-01-24] MEDS ORDERED: FUROSEMIDE 40 MG/4 ML INJECTABLE VIAL ONE (05:18)
[2023-01-24] MEDS ORDERED: APIXABAN 2.5 MG TABLET PO SCH (10:00)
[2023-01-24] MEDS ORDERED: PANTOPRAZOLE 20 MG TABLET PO SCH (10:00)
[2023-01-24] MEDS ORDERED: SERTRALINE HCL 50 MG TABLET (FP) PO SCH (10:00)
[2023-01-24] MEDS ORDERED: FERROUS SO4 325 MG TABLET (FP) PO SCH (10:00)
[2023-01-24] MEDS ORDERED: ROCURONIUM BROMIDE 50 MG/5 ML VIAL IV ONE (11:43)
[2023-01-24] MEDS ORDERED: ETOMIDATE 40 MG/20 ML VIAL IVPUSH ONE (11:44)
[2023-01-24] MEDS ORDERED: MIDAZOLAM IN 0.9 % SOD.CHLORID 100 MG/100 ML PLAST..BAG IVPB SCH (11:45)
[2023-01-24] MEDS ORDERED: FENTANYL IVPB 500 MCG/100 ML BAG IVPB SCH (11:45)
[2023-01-24] MEDS ORDERED: MIDAZOLAM IN 0.9 % SOD.CHLORID 1 MG/1 ML PLAST..BAG ONE (12:03)
[2023-01-24] MEDS ORDERED: FENTANYL NS IVPB 500 MCG/100 ML BAG IVPB ONE (12:04)
[2023-01-24] MEDS ORDERED: SODIUM CHLORIDE 0.9% 500 ML INFUS.BAG IV ONE (12:15)
[2023-01-24 13:30] LABS: BASO % 1.1 % (0-2.0); HEMATOCRIT 24.1 % (35.4-49); HEMOGLOBIN 7.4 GM/dL (11.7-16.9); LYMPH % 3.3 % (8-40); MCH 27.4 pg (25.7-33.7); MCHC 30.8 g/dl (32.0-35.9); MEAN CELL VOLUME 88.9 fl (80-96); MEAN PLT VOLUME 7.6 fl (7.5-11.1); MONO % 4.4 % (3.8-10.2); NEUT % 91.2 % (42.8-82.8); PLATELET COUNT 374 10^3/uL (134-434); RBC 2.71 M/mm3 (4.00-5.60); RDW 19.3 % (11.9-15.9); WHITE BLOOD COUNT 12.7 K/mm3 (4.0-10.0)
[2023-01-24 13:35] LABS: ARTERIAL BLD GAS O2 SATURATION 97.7 % (95-98); ARTERIAL BLOOD GAS BASE EXCESS -7.1 mmol/L (-2-2); ARTERIAL BLOOD GAS PO2 122.4 mmHg (80-100); ARTERIAL BLOOD GAS pH 7.227 (7.350-7.450)
[2023-01-24] MEDS ORDERED: MIDAZOLAM 100 MG in SODIUM CHLORIDE 100 ML IVPB SCH (13:36)
[2023-01-24 13:39] LABS: VENT MODE A/C; VENT RATE 20
[2023-01-24 13:46] LABS: POTASSIUM 5.6 mmol/L (3.5-5.1)
[2023-01-24 13:48] LABS: ALBUMIN 1.9 g/dl (3.4-5.0); BLOOD UREA NITROGEN 83.1 mg/dL (7-18); CALCIUM 8.8 mg/dL (8.5-10.1); MAGNESIUM 2.3 mg/dL (1.8-2.4)
[2023-01-24] MEDS ORDERED: CALCIUM GLUCONATE 10% - 1,000 MG/10 ML VIAL IVPB ONE (13:48)
[2023-01-24 13:51] LABS: CREATININE 3.3 mg/dL (0.55-1.3); PHOSPHOROUS 8.1 mg/dL (2.5-4.9)
[2023-01-24 13:53] LABS: BILIRUBIN,TOTAL 0.3 mg/dL (0.2-1); TOT PROT 5.8 g/dl (6.4-8.2)
[2023-01-24 14:11] LABS: ANISOCYTOSIS 0; MACROCYTOSIS 0
[2023-01-24] MEDS: MIDAZOLAM IN 0.9 % SOD.CHLORID 100 MG/100 ML PLAST..BAG IVPB SCH (14:45)
[2023-01-24] MEDS: FENTANYL IVPB 500 MCG/100 ML BAG IVPB SCH (15:03)
[2023-01-24] MEDS: PIPERACILLIN/TAZOB 2.25 GM 2.25 GM in DEXTROSE 5%-WATER - 50 ML IVPB SCH ×2 (16:31→21:27)
[2023-01-24] MEDS: SODIUM CHLORIDE 1,000 ML IV SCH (16:31)
[2023-01-24] MEDS ORDERED: ATROPINE SULFATE 1 MG/10 ML DISP.SYRIN IVPUSH PRN (19:22)
[2023-01-24] MEDS: APIXABAN 2.5 MG TABLET PO SCH (21:27)
[2023-01-24] MEDS: LACTULOSE 20 GM/30 ML UDC (FOR ORAL USE ONLY) PO SCH (21:27)
[2023-01-25] MEDS: PIPERACILLIN/TAZOB 2.25 GM 2.25 GM in DEXTROSE 5%-WATER - 50 ML IVPB SCH ×4 (03:00→21:02)
[2023-01-25] MEDS: FENTANYL IVPB 500 MCG/100 ML BAG IVPB SCH ×2 (03:05→14:52)
[2023-01-25] MEDS: SODIUM CHLORIDE 1,000 ML IV SCH (06:14)
[2023-01-25 06:30] LABS: ARTERIAL BLD GAS O2 SATURATION 99.5 % (95-98); ARTERIAL BLOOD GAS BASE EXCESS -4.6 mmol/L (-2-2); ARTERIAL BLOOD GAS PO2 245.9 mmHg (80-100)
[2023-01-25 06:37] LABS: ALLENS TEST POSITIVE; VENT MODE A/C
[2023-01-25 06:38] LABS: VENT RATE 22
[2023-01-25 07:34] LABS: HEMOGLOBIN 8.8 GM/dL (11.7-16.9); MCH 27.8 pg (25.7-33.7); MCHC 32.4 g/dl (32.0-35.9); MEAN CELL VOLUME 85.6 fl (80-96); MEAN PLT VOLUME 7.8 fl (7.5-11.1); PLATELET COUNT 451 10^3/uL (134-434); RBC 3.15 M/mm3 (4.00-5.60); RDW 19.5 % (11.9-15.9); WHITE BLOOD COUNT 13.6 K/mm3 (4.0-10.0)
[2023-01-25 07:39] LABS: POTASSIUM 4.2 mmol/L (3.5-5.1)
[2023-01-25 07:42] LABS: ALBUMIN 1.8 g/dl (3.4-5.0); CALCIUM 8.4 mg/dL (8.5-10.1)
[2023-01-25 07:43] LABS: BLOOD UREA NITROGEN 78.4 mg/dL (7-18)
[2023-01-25 07:45] LABS: CREATININE 3.2 mg/dL (0.55-1.3); PHOSPHOROUS 5.6 mg/dL (2.5-4.9)
[2023-01-25 07:47] LABS: BILIRUBIN,TOTAL 0.4 mg/dL (0.2-1); TOT PROT 5.5 g/dl (6.4-8.2)
[2023-01-25] MEDS: APIXABAN 2.5 MG TABLET PO SCH ×2 (09:04→21:02)
[2023-01-25] MEDS: LACTULOSE 20 GM/30 ML UDC (FOR ORAL USE ONLY) PO SCH ×2 (09:04→21:02)
[2023-01-25] MEDS: FERROUS SO4 325 MG TABLET (FP) PO SCH ×2 (09:04→09:11)
[2023-01-25] MEDS: PANTOPRAZOLE SODIUM 40 MG VIAL IVPUSH SCH (09:04)
[2023-01-25] MEDS: FERROUS SO4 300 MG/5 ML ORAL SOLN UNIT DOSE CUPS GT SCH (09:26)
[2023-01-25 09:42] LABS: ANISOCYTOSIS 1+; MACROCYTOSIS 0
[2023-01-25] MEDS: LACTATED RINGERS SOLUTION 1,000 ML/1,000 ML INFUS.BAG IV SCH (11:30)
[2023-01-25] MEDS: MIDAZOLAM IN 0.9 % SOD.CHLORID 100 MG/100 ML PLAST..BAG IVPB SCH (14:30)
[2023-01-26] MEDS ORDERED: fentaNYL CITRATE 250 MCG/5 ML VIAL ONE (00:07)
[2023-01-26] MEDS: LACTATED RINGERS SOLUTION 1,000 ML/1,000 ML INFUS.BAG IV SCH (01:46)
[2023-01-26] MEDS: PIPERACILLIN/TAZOB 2.25 GM 2.25 GM in DEXTROSE 5%-WATER - 50 ML IVPB SCH ×4 (02:05→20:59)
[2023-01-26 08:18] LABS: BASO % 0.3 % (0-2.0); EOS % 0.4 % (0-4.5); HEMATOCRIT 26.7 % (35.4-49); HEMOGLOBIN 8.3 GM/dL (11.7-16.9); LYMPH % 6.5 % (8-40); MCH 26.9 pg (25.7-33.7); MEAN CELL VOLUME 86.9 fl (80-96); MEAN PLT VOLUME 7.7 fl (7.5-11.1); MONO % 3.9 % (3.8-10.2); NEUT % 88.9 % (42.8-82.8); PLATELET COUNT 415 10^3/uL (134-434); RBC 3.07 M/mm3 (4.00-5.60); RDW 19.6 % (11.9-15.9); WHITE BLOOD COUNT 12.1 K/mm3 (4.0-10.0)
[2023-01-26] MEDS: LACTULOSE 20 GM/30 ML UDC (FOR ORAL USE ONLY) PO SCH ×2 (09:00→20:59)
[2023-01-26] MEDS: APIXABAN 2.5 MG TABLET PO SCH ×2 (09:00→20:59)
[2023-01-26] MEDS: FERROUS SO4 300 MG/5 ML ORAL SOLN UNIT DOSE CUPS GT SCH (09:00)
[2023-01-26] MEDS: PANTOPRAZOLE SODIUM 40 MG VIAL IVPUSH SCH (09:00)
[2023-01-26 09:25] LABS: POTASSIUM 4.4 mmol/L (3.5-5.1)
[2023-01-26 09:27] LABS: CALCIUM 8.6 mg/dL (8.5-10.1)
[2023-01-26 09:28] LABS: ALBUMIN 1.8 g/dl (3.4-5.0); BLOOD UREA NITROGEN 77.8 mg/dL (7-18); MAGNESIUM 2.2 mg/dL (1.8-2.4)
[2023-01-26 09:31] LABS: CREATININE 3.1 mg/dL (0.55-1.3)
[2023-01-26 09:32] LABS: BILIRUBIN,TOTAL 0.2 mg/dL (0.2-1); TOT PROT 5.3 g/dl (6.4-8.2)
[2023-01-26] MEDS ORDERED: DEXTROSE 5%-WATER - 1,000 ML IV SCH (10:00)
[2023-01-26] MEDS: DEXMEDETOMIDINE PREMIX 400 MCG/100 ML BAG IVPB SCH ×2 (10:10→22:04)
[2023-01-26] MEDS: METOPROLOL TARTRATE 25 MG TABLET (FP) PO SCH ×2 (10:43→21:00)
[2023-01-26] MEDS ORDERED: MIDAZOLAM HCL 2 MG/2 ML SINGLE DOSE VIAL IVPUSH ONE (13:57)
[2023-01-26] MEDS: KETOROLAC TROMETHAMINE 0.5% EYE DROP 1 DROP DROPS OS SCH ×4 (17:13→20:59)
[2023-01-26] MEDS: prednisoLONE ACETATE 1% OPHTH SUSP 5 ML BOTTLE OS SCH ×4 (17:13→20:59)
[2023-01-26 18:44] LABS: ARTERIAL BLD GAS O2 SATURATION 96.7 % (95-98); ARTERIAL BLOOD GAS BASE EXCESS -3.5 mmol/L (-2-2); ARTERIAL BLOOD GAS PO2 95.6 mmHg (80-100); ARTERIAL BLOOD GAS pH 7.317 (7.350-7.450)
[2023-01-26 18:47] LABS: ALLENS TEST POSITIVE; VENT MODE PS
[2023-01-26] MEDS ORDERED: FUROSEMIDE 40 MG/4 ML INJECTABLE VIAL IVPUSH ONE (22:00)
[2023-01-27] MEDS: PIPERACILLIN/TAZOB 2.25 GM 2.25 GM in DEXTROSE 5%-WATER - 50 ML IVPB SCH ×4 (02:24→21:15)
[2023-01-27] MEDS ORDERED: FENTANYL CITRATE/PF 50 MCG/ML VIAL IVPUSH ONE (06:33)
[2023-01-27 06:56] LABS: BASO % 0.8 % (0-2.0); HEMATOCRIT 25.7 % (35.4-49); HEMOGLOBIN 7.9 GM/dL (11.7-16.9); LYMPH % 9.8 % (8-40); MCH 27.4 pg (25.7-33.7); MCHC 30.8 g/dl (32.0-35.9); MEAN PLT VOLUME 7.9 fl (7.5-11.1); MONO % 4.8 % (3.8-10.2); NEUT % 83.6 % (42.8-82.8); PLATELET COUNT 364 10^3/uL (134-434); RBC 2.88 M/mm3 (4.00-5.60); RDW 19.5 % (11.9-15.9); WHITE BLOOD COUNT 11.2 K/mm3 (4.0-10.0)
[2023-01-27 07:13] LABS: POTASSIUM 4.2 mmol/L (3.5-5.1)
[2023-01-27 07:20] LABS: CALCIUM 8.2 mg/dL (8.5-10.1)
[2023-01-27 07:21] LABS: ALBUMIN 1.7 g/dl (3.4-5.0); BLOOD UREA NITROGEN 70.2 mg/dL (7-18)
[2023-01-27 07:24] LABS: CREATININE 3.1 mg/dL (0.55-1.3); PHOSPHOROUS 4.3 mg/dL (2.5-4.9)
[2023-01-27 07:26] LABS: BILIRUBIN,TOTAL 0.3 mg/dL (0.2-1); TOT PROT 5.2 g/dl (6.4-8.2)
[2023-01-27 09:22] LABS: RETICULOCYTES 3.46 % (0.5-1.5)
[2023-01-27] MEDS: PANTOPRAZOLE SODIUM 40 MG VIAL IVPUSH SCH (09:30)
[2023-01-27] MEDS: KETOROLAC TROMETHAMINE 0.5% EYE DROP 1 DROP DROPS OS SCH ×4 (09:30→21:15)
[2023-01-27] MEDS: FERROUS SO4 300 MG/5 ML ORAL SOLN UNIT DOSE CUPS GT SCH (09:30)
[2023-01-27] MEDS: APIXABAN 2.5 MG TABLET PO SCH ×2 (09:30→21:15)
[2023-01-27] MEDS: prednisoLONE ACETATE 1% OPHTH SUSP 5 ML BOTTLE OS SCH ×4 (09:30→21:16)
[2023-01-27] MEDS: LACTULOSE 20 GM/30 ML UDC (FOR ORAL USE ONLY) PO SCH ×2 (09:30→21:15)
[2023-01-27] MEDS: DEXMEDETOMIDINE PREMIX 400 MCG/100 ML BAG IVPB SCH (16:40)
[2023-01-27] MEDS: amLODIPine BESYLATE 5 MG TABLET (FP) PO SCH (17:15)
[2023-01-27] MEDS: guaiFENesin 600 MG TABLET.ER (FP) PO SCH (21:15)
[2023-01-28] MEDS: PIPERACILLIN/TAZOB 2.25 GM 2.25 GM in DEXTROSE 5%-WATER - 50 ML IVPB SCH ×4 (03:26→21:13)
[2023-01-28 07:35] LABS: HEMOGLOBIN 9.3 GM/dL (11.7-16.9); WHITE BLOOD COUNT 11.3 K/mm3 (4.0-10.0)
[2023-01-28 07:36] LABS: EOS % 1.2 % (0-4.5); HEMATOCRIT 31.2 % (35.4-49); LYMPH % 7.5 % (8-40); MCH 26.6 pg (25.7-33.7); MCHC 29.8 g/dl (32.0-35.9); MEAN CELL VOLUME 89.2 fl (80-96); MEAN PLT VOLUME 8.2 fl (7.5-11.1); MONO % 4.5 % (3.8-10.2); NEUT % 85.8 % (42.8-82.8); PLATELET COUNT 434 10^3/uL (134-434); RDW 19.8 % (11.9-15.9)
[2023-01-28 07:59] LABS: ALBUMIN 2.1 g/dl (3.4-5.0); BLOOD UREA NITROGEN 57.6 mg/dL (7-18); MAGNESIUM 2.3 mg/dL (1.8-2.4)
[2023-01-28 08:02] LABS: CREATININE 2.8 mg/dL (0.55-1.3); PHOSPHOROUS 4.3 mg/dL (2.5-4.9)
[2023-01-28 08:03] LABS: BILIRUBIN,TOTAL 0.5 mg/dL (0.2-1); TOT PROT 6.1 g/dl (6.4-8.2)
[2023-01-28] MEDS: guaiFENesin 600 MG TABLET.ER (FP) PO SCH ×2 (09:37→21:14)
[2023-01-28] MEDS: PANTOPRAZOLE SODIUM 40 MG VIAL IVPUSH SCH (09:37)
[2023-01-28] MEDS: amLODIPine BESYLATE 5 MG TABLET (FP) PO SCH (09:37)
[2023-01-28] MEDS: FUROSEMIDE 40 MG TABLET (FP) PO SCH (09:37)
[2023-01-28] MEDS: APIXABAN 2.5 MG TABLET PO SCH ×2 (09:37→21:14)
[2023-01-28] MEDS: LACTULOSE 20 GM/30 ML UDC (FOR ORAL USE ONLY) PO SCH ×2 (09:37→21:14)
[2023-01-28] MEDS: FERROUS SO4 300 MG/5 ML ORAL SOLN UNIT DOSE CUPS GT SCH (09:37)
[2023-01-28] MEDS: KETOROLAC TROMETHAMINE 0.5% EYE DROP 1 DROP DROPS OS SCH ×4 (09:38→21:15)
[2023-01-28] MEDS: prednisoLONE ACETATE 1% OPHTH SUSP 5 ML BOTTLE OS SCH ×4 (09:38→21:15)
[2023-01-28 15:27] VITALS: BMI 23.0
[2023-01-28] MEDS: DEXMEDETOMIDINE PREMIX 400 MCG/100 ML BAG IVPB SCH (18:02)
[2023-01-29] MEDS: PIPERACILLIN/TAZOB 2.25 GM 2.25 GM in DEXTROSE 5%-WATER - 50 ML IVPB SCH ×4 (02:20→22:38)
[2023-01-29 07:38] LABS: BASO % 0.7 % (0-2.0); EOS % 1.5 % (0-4.5); HEMATOCRIT 27.9 % (35.4-49); HEMOGLOBIN 8.6 GM/dL (11.7-16.9); LYMPH % 4.4 % (8-40); MCH 27.3 pg (25.7-33.7); MCHC 30.8 g/dl (32.0-35.9); MEAN CELL VOLUME 88.7 fl (80-96); MEAN PLT VOLUME 8.1 fl (7.5-11.1); MONO % 3.6 % (3.8-10.2); NEUT % 89.8 % (42.8-82.8); PLATELET COUNT 405 10^3/uL (134-434); RBC 3.15 M/mm3 (4.00-5.60); RDW 19.5 % (11.9-15.9); WHITE BLOOD COUNT 13.2 K/mm3 (4.0-10.0)
[2023-01-29 08:01] LABS: POTASSIUM 3.6 mmol/L (3.5-5.1)
[2023-01-29 08:07] LABS: BLOOD UREA NITROGEN 50.3 mg/dL (7-18); CALCIUM 8.9 mg/dL (8.5-10.1); MAGNESIUM 2.1 mg/dL (1.8-2.4)
[2023-01-29 08:11] LABS: CREATININE 2.8 mg/dL (0.55-1.3); TOT PROT 6.2 g/dl (6.4-8.2)
[2023-01-29 08:13] LABS: BILIRUBIN,TOTAL 0.3 mg/dL (0.2-1)
[2023-01-29] MEDS: PANTOPRAZOLE SODIUM 40 MG VIAL IVPUSH SCH (10:06)
[2023-01-29] MEDS: FERROUS SO4 300 MG/5 ML ORAL SOLN UNIT DOSE CUPS GT SCH (10:06)
[2023-01-29] MEDS: APIXABAN 2.5 MG TABLET PO SCH ×2 (10:07→22:38)
[2023-01-29] MEDS: KETOROLAC TROMETHAMINE 0.5% EYE DROP 1 DROP DROPS OS SCH ×4 (10:07→22:39)
[2023-01-29] MEDS: guaiFENesin 600 MG TABLET.ER (FP) PO SCH ×2 (10:07→22:38)
[2023-01-29] MEDS: FUROSEMIDE 40 MG TABLET (FP) PO SCH (10:07)
[2023-01-29] MEDS: amLODIPine BESYLATE 5 MG TABLET (FP) PO SCH (10:07)
[2023-01-29] MEDS: prednisoLONE ACETATE 1% OPHTH SUSP 5 ML BOTTLE OS SCH ×4 (10:07→22:39)
[2023-01-29] MEDS: LACTULOSE 20 GM/30 ML UDC (FOR ORAL USE ONLY) PO SCH ×3 (10:08→22:38)
[2023-01-29] MEDS: DEXMEDETOMIDINE PREMIX 400 MCG/100 ML BAG IVPB SCH (10:08)
[2023-01-29] MEDS ORDERED: IRON SUCROSE INJECTION 200 MG in SODIUM CHLORIDE 90 ML IVPB ONE (14:00)
[2023-01-30] MEDS: PIPERACILLIN/TAZOB 2.25 GM 2.25 GM in DEXTROSE 5%-WATER - 50 ML IVPB SCH ×4 (03:08→22:18)
[2023-01-30 08:45] LABS: BASO % 0.9 % (0-2.0); EOS % 1.6 % (0-4.5); HEMATOCRIT 25.5 % (35.4-49); HEMOGLOBIN 7.9 GM/dL (11.7-16.9); LYMPH % 4.5 % (8-40); MCH 26.9 pg (25.7-33.7); MEAN CELL VOLUME 86.8 fl (80-96); MEAN PLT VOLUME 7.8 fl (7.5-11.1); MONO % 4.4 % (3.8-10.2); NEUT % 88.6 % (42.8-82.8); PLATELET COUNT 345 10^3/uL (134-434); RBC 2.94 M/mm3 (4.00-5.60); RDW 19.6 % (11.9-15.9); WHITE BLOOD COUNT 12.7 K/mm3 (4.0-10.0)
[2023-01-30 09:14] LABS: POTASSIUM 3.3 mmol/L (3.5-5.1)
[2023-01-30 09:18] LABS: ALBUMIN 1.9 g/dl (3.4-5.0); BLOOD UREA NITROGEN 42.7 mg/dL (7-18)
[2023-01-30 09:20] LABS: BILIRUBIN,TOTAL 0.3 mg/dL (0.2-1); CREATININE 2.7 mg/dL (0.55-1.3); TOT PROT 5.7 g/dl (6.4-8.2)
[2023-01-30] MEDS ORDERED: POTASSIUM CHLORIDE ORAL LIQUID 20 MEQ/15 ML PO ONE (09:45)
[2023-01-30] MEDS: APIXABAN 2.5 MG TABLET PO SCH ×2 (10:00→10:26)
[2023-01-30] MEDS: DEXMEDETOMIDINE PREMIX 400 MCG/100 ML BAG IVPB SCH (10:00)
[2023-01-30] MEDS: NEBIVOLOL 5 MG TABLET (FP) PO SCH (10:00)
[2023-01-30] MEDS: POTASSIUM CHLORIDE TABS 20 MEQ TABLET.ER (FP) PO SCH (10:00)
[2023-01-30] MEDS: guaiFENesin 600 MG TABLET.ER (FP) PO SCH ×2 (10:26→22:17)
[2023-01-30] MEDS: amLODIPine BESYLATE 5 MG TABLET (FP) PO SCH (10:26)
[2023-01-30] MEDS: FERROUS SO4 300 MG/5 ML ORAL SOLN UNIT DOSE CUPS GT SCH (10:26)
[2023-01-30] MEDS: FUROSEMIDE 40 MG TABLET (FP) PO SCH (10:26)
[2023-01-30] MEDS: PANTOPRAZOLE SODIUM 40 MG VIAL IVPUSH SCH ×2 (10:26→22:18)
[2023-01-30] MEDS: LACTULOSE 20 GM/30 ML UDC (FOR ORAL USE ONLY) PO SCH ×2 (10:26→22:17)
[2023-01-30] MEDS: prednisoLONE ACETATE 1% OPHTH SUSP 5 ML BOTTLE OS SCH ×4 (10:27→22:17)
[2023-01-30] MEDS: KETOROLAC TROMETHAMINE 0.5% EYE DROP 1 DROP DROPS OS SCH ×4 (10:27→22:17)
[2023-01-30] MEDS: LEVALBUTEROL HCL 0.31 MG/3 ML VIAL.NEB IH SCH ×2 (14:00→20:13)
[2023-01-30] MEDS ORDERED: IRON SUCROSE INJECTION 200 MG in SODIUM CHLORIDE 90 ML IVPB ONE (15:00)
[2023-01-30 16:12] LABS: HEMOGLOBIN 8.9 GM/dL (11.7-16.9); MCH 27.2 pg (25.7-33.7); MCHC 30.8 g/dl (32.0-35.9); MEAN CELL VOLUME 88.2 fl (80-96); MEAN PLT VOLUME 7.8 fl (7.5-11.1); PLATELET COUNT 349 10^3/uL (134-434); RBC 3.29 M/mm3 (4.00-5.60); RDW 20.2 % (11.9-15.9); WHITE BLOOD COUNT 13.5 K/mm3 (4.0-10.0)
[2023-01-30 16:40] LABS: ANISOCYTOSIS 2+; MACROCYTOSIS 1+
[2023-01-30 20:29] LABS: HEMATOCRIT 25.5 % (35.4-49); MCH 27.3 pg (25.7-33.7); MCHC 31.2 g/dl (32.0-35.9); MEAN CELL VOLUME 87.3 fl (80-96); MEAN PLT VOLUME 7.7 fl (7.5-11.1); PLATELET COUNT 361 10^3/uL (134-434); RBC 2.92 M/mm3 (4.00-5.60); RDW 20.1 % (11.9-15.9); WHITE BLOOD COUNT 14.7 K/mm3 (4.0-10.0)
[2023-01-30 20:36] LABS: INR 1.53 (0.83-1.09); PROTHROMBIN TIME (PATIENT) 17.7 SEC (9.7-13.0)
[2023-01-30 20:39] LABS: POTASSIUM 3.5 mmol/L (3.5-5.1)
[2023-01-30 20:42] LABS: ALBUMIN 2.1 g/dl (3.4-5.0); BLOOD UREA NITROGEN 40.4 mg/dL (7-18); CALCIUM 9.2 mg/dL (8.5-10.1)
[2023-01-30 20:45] LABS: BILIRUBIN,DIRECT 0.2 mg/dL (0.0-0.2)
[2023-01-30 20:46] LABS: BILIRUBIN,TOTAL 0.5 mg/dL (0.2-1); CREATININE 2.6 mg/dL (0.55-1.3); PHOSPHOROUS 2.8 mg/dL (2.5-4.9); TOT PROT 5.9 g/dl (6.4-8.2)
[2023-01-31] MEDS: PIPERACILLIN/TAZOB 2.25 GM 2.25 GM in DEXTROSE 5%-WATER - 50 ML IVPB SCH ×4 (02:38→22:44)
[2023-01-31] MEDS: LEVALBUTEROL HCL 0.31 MG/3 ML VIAL.NEB IH SCH ×3 (08:12→21:32)
[2023-01-31 08:15] LABS: HEMATOCRIT 23.5 % (35.4-49); HEMOGLOBIN 7.3 GM/dL (11.7-16.9); MCH 27.7 pg (25.7-33.7); MCHC 31.1 g/dl (32.0-35.9); MEAN PLT VOLUME 8.3 fl (7.5-11.1); PLATELET COUNT 332 10^3/uL (134-434); RBC 2.64 M/mm3 (4.00-5.60); RDW 20.1 % (11.9-15.9); WHITE BLOOD COUNT 15.3 K/mm3 (4.0-10.0)
[2023-01-31 08:31] LABS: POTASSIUM 3.5 mmol/L (3.5-5.1)
[2023-01-31 08:33] LABS: CALCIUM 8.8 mg/dL (8.5-10.1)
[2023-01-31 08:34] LABS: BLOOD UREA NITROGEN 38.5 mg/dL (7-18)
[2023-01-31 08:38] LABS: CREATININE 2.5 mg/dL (0.55-1.3)
[2023-01-31 08:39] LABS: BILIRUBIN,TOTAL 0.9 mg/dL (0.2-1); TOT PROT 5.8 g/dl (6.4-8.2)
[2023-01-31] MEDS: FUROSEMIDE 40 MG TABLET (FP) PO SCH ×2 (09:34→11:11)
[2023-01-31] MEDS: guaiFENesin 600 MG TABLET.ER (FP) PO SCH ×3 (09:34→22:46)
[2023-01-31] MEDS: NEBIVOLOL 5 MG TABLET (FP) PO SCH (09:34)
[2023-01-31] MEDS: POTASSIUM CHLORIDE TABS 20 MEQ TABLET.ER (FP) PO SCH (09:34)
[2023-01-31] MEDS: amLODIPine BESYLATE 5 MG TABLET (FP) PO SCH ×2 (09:34→11:11)
[2023-01-31] MEDS: KETOROLAC TROMETHAMINE 0.5% EYE DROP 1 DROP DROPS OS SCH ×5 (09:36→22:46)
[2023-01-31] MEDS: LACTULOSE 20 GM/30 ML UDC (FOR ORAL USE ONLY) PO SCH (09:37)
[2023-01-31] MEDS: FERROUS SO4 300 MG/5 ML ORAL SOLN UNIT DOSE CUPS GT SCH (09:37)
[2023-01-31] MEDS ORDERED: FUROSEMIDE 40 MG/4 ML INJECTABLE VIAL IVPUSH ONE (09:37)
[2023-01-31] MEDS: prednisoLONE ACETATE 1% OPHTH SUSP 5 ML BOTTLE OS SCH ×5 (09:37→22:46)
[2023-01-31] MEDS: PANTOPRAZOLE SODIUM 40 MG VIAL IVPUSH SCH ×2 (09:38→22:44)
[2023-01-31] MEDS ORDERED: FERROUS SO4 300 MG/5 ML ORAL SOLN UNIT DOSE CUPS GT SCH (10:00)
[2023-01-31] MEDS ORDERED: LACTULOSE 20 GM/30 ML UDC (FOR ORAL USE ONLY) PO SCH (10:00)
[2023-01-31 10:23] LABS: ANISOCYTOSIS 1+; MACROCYTOSIS 0
[2023-01-31] MEDS: KCL 10 MEQ IVPB 10 MEQ/100 ML INFUS.BAG IVPB SCH ×2 (11:46→13:34)
[2023-02-01] MEDS: PIPERACILLIN/TAZOB 2.25 GM 2.25 GM in DEXTROSE 5%-WATER - 50 ML IVPB SCH ×4 (02:29→22:35)
[2023-02-01 08:25] LABS: HEMATOCRIT 25.1 % (35.4-49); HEMOGLOBIN 7.9 GM/dL (11.7-16.9); MCH 27.8 pg (25.7-33.7); MCHC 31.4 g/dl (32.0-35.9); MEAN CELL VOLUME 88.4 fl (80-96); MEAN PLT VOLUME 8.2 fl (7.5-11.1); PLATELET COUNT 312 10^3/uL (134-434); RBC 2.84 M/mm3 (4.00-5.60); RDW 19.3 % (11.9-15.9); WHITE BLOOD COUNT 18.3 K/mm3 (4.0-10.0)
[2023-02-01 08:30] LABS: POTASSIUM 3.7 mmol/L (3.5-5.1)
[2023-02-01 08:40] LABS: CALCIUM 8.8 mg/dL (8.5-10.1); MAGNESIUM 1.9 mg/dL (1.8-2.4)
[2023-02-01 08:43] LABS: CREATININE 2.5 mg/dL (0.55-1.3)
[2023-02-01 08:45] LABS: BILIRUBIN,TOTAL 0.7 mg/dL (0.2-1); TOT PROT 5.6 g/dl (6.4-8.2)
[2023-02-01] MEDS: LEVALBUTEROL HCL 0.31 MG/3 ML VIAL.NEB IH SCH ×3 (08:55→21:00)
[2023-02-01] MEDS: POTASSIUM CHLORIDE TABS 20 MEQ TABLET.ER (FP) PO SCH (09:32)
[2023-02-01] MEDS: NEBIVOLOL 5 MG TABLET (FP) PO SCH (09:32)
[2023-02-01] MEDS: PANTOPRAZOLE SODIUM 40 MG VIAL IVPUSH SCH ×2 (09:32→22:35)
[2023-02-01] MEDS: guaiFENesin 600 MG TABLET.ER (FP) PO SCH ×2 (09:33→22:35)
[2023-02-01] MEDS: amLODIPine BESYLATE 5 MG TABLET (FP) PO SCH (09:33)
[2023-02-01] MEDS: FUROSEMIDE 40 MG TABLET (FP) PO SCH (09:33)
[2023-02-01] MEDS: KETOROLAC TROMETHAMINE 0.5% EYE DROP 1 DROP DROPS OS SCH ×4 (09:34→22:47)
[2023-02-01] MEDS: prednisoLONE ACETATE 1% OPHTH SUSP 5 ML BOTTLE OS SCH ×4 (09:34→22:47)
[2023-02-01 11:37] LABS: ANISOCYTOSIS 2+; MACROCYTOSIS 0; OVALOCYTE 2+; TARGET CELLS 1+; TEAR DROP CELLS 2+
[2023-02-02] MEDS: PIPERACILLIN/TAZOB 2.25 GM 2.25 GM in DEXTROSE 5%-WATER - 50 ML IVPB SCH (03:12)
[2023-02-02] MEDS: LEVALBUTEROL HCL 0.31 MG/3 ML VIAL.NEB IH SCH ×3 (07:56→20:52)
[2023-02-02 08:20] LABS: POTASSIUM 3.9 mmol/L (3.5-5.1)
[2023-02-02 08:27] LABS: CALCIUM 8.9 mg/dL (8.5-10.1)
[2023-02-02 08:28] LABS: BLOOD UREA NITROGEN 42.3 mg/dL (7-18)
[2023-02-02 08:31] LABS: CREATININE 2.6 mg/dL (0.55-1.3)
[2023-02-02 08:32] LABS: BILIRUBIN,TOTAL 0.6 mg/dL (0.2-1); TOT PROT 5.8 g/dl (6.4-8.2)
[2023-02-02 08:48] LABS: HEMATOCRIT 26.7 % (35.4-49); HEMOGLOBIN 8.6 GM/dL (11.7-16.9); MCH 28.3 pg (25.7-33.7); MEAN CELL VOLUME 88.6 fl (80-96); RBC 3.02 M/mm3 (4.00-5.60); RDW 19.3 % (11.9-15.9); WHITE BLOOD COUNT 17.2 K/mm3 (4.0-10.0)
[2023-02-02 08:49] LABS: PLATELET COUNT 270 10^3/uL (134-434)
[2023-02-02] MEDS: KETOROLAC TROMETHAMINE 0.5% EYE DROP 1 DROP DROPS OS SCH ×4 (09:00→21:42)
[2023-02-02] MEDS: prednisoLONE ACETATE 1% OPHTH SUSP 5 ML BOTTLE OS SCH ×4 (09:00→21:42)
[2023-02-02 09:27] LABS: ANISOCYTOSIS 2+; MACROCYTOSIS 1+
[2023-02-02 09:49] LABS: PLATELET ESTIMATE ADEQUATE
[2023-02-02] MEDS: APIXABAN 2.5 MG TABLET PO SCH ×2 (14:30→21:42)
[2023-02-02] MEDS: FUROSEMIDE 40 MG TABLET (FP) PO SCH (14:31)
[2023-02-02] MEDS: guaiFENesin 600 MG TABLET.ER (FP) PO SCH ×2 (14:31→21:42)
[2023-02-02] MEDS: POTASSIUM CHLORIDE TABS 20 MEQ TABLET.ER (FP) PO SCH (14:31)
[2023-02-02] MEDS: NEBIVOLOL 5 MG TABLET (FP) PO SCH (14:31)
[2023-02-02] MEDS: amLODIPine BESYLATE 5 MG TABLET (FP) PO SCH (14:32)
[2023-02-02] MEDS: PANTOPRAZOLE SODIUM 40 MG VIAL IVPUSH SCH (14:33)
[2023-02-02] MEDS: PANTOPRAZOLE 40 MG TABLET PO SCH (21:42)
[2023-02-03] MEDS: LEVALBUTEROL HCL 0.31 MG/3 ML VIAL.NEB IH SCH ×2 (08:03→14:29)
[2023-02-03 08:14] LABS: HEMATOCRIT 26.6 % (35.4-49); HEMOGLOBIN 8.2 GM/dL (11.7-16.9); MCH 27.8 pg (25.7-33.7); MCHC 30.7 g/dl (32.0-35.9); MEAN CELL VOLUME 90.4 fl (80-96); MEAN PLT VOLUME 8.4 fl (7.5-11.1); PLATELET COUNT 321 10^3/uL (134-434); RBC 2.94 M/mm3 (4.00-5.60); RDW 19.5 % (11.9-15.9); WHITE BLOOD COUNT 15.2 K/mm3 (4.0-10.0)
[2023-02-03 08:34] LABS: POTASSIUM 3.7 mmol/L (3.5-5.1)
[2023-02-03] MEDS ORDERED: IRON SUCROSE INJECTION 200 MG in SODIUM CHLORIDE 90 ML IVPB ONE (08:38)
[2023-02-03 08:41] LABS: CALCIUM 8.9 mg/dL (8.5-10.1)
[2023-02-03 08:45] LABS: CREATININE 2.5 mg/dL (0.55-1.3)
[2023-02-03 08:47] LABS: BILIRUBIN,TOTAL 0.3 mg/dL (0.2-1)
[2023-02-03 10:58] LABS: ANISOCYTOSIS 2+; MACROCYTOSIS 0
[2023-02-03] MEDS: NEBIVOLOL 5 MG TABLET (FP) PO SCH (11:02)
[2023-02-03] MEDS: KETOROLAC TROMETHAMINE 0.5% EYE DROP 1 DROP DROPS OS SCH ×2 (11:03→14:00)
[2023-02-03] MEDS: guaiFENesin 600 MG TABLET.ER (FP) PO SCH (11:03)
[2023-02-03] MEDS: FUROSEMIDE 40 MG TABLET (FP) PO SCH (11:03)
[2023-02-03] MEDS: PANTOPRAZOLE 40 MG TABLET PO SCH (11:03)
[2023-02-03] MEDS: prednisoLONE ACETATE 1% OPHTH SUSP 5 ML BOTTLE OS SCH ×2 (11:03→14:00)
[2023-02-03] MEDS: amLODIPine BESYLATE 5 MG TABLET (FP) PO SCH (11:03)
[2023-02-03] MEDS: APIXABAN 2.5 MG TABLET PO SCH (11:03)
[2023-02-03] MEDS: POTASSIUM CHLORIDE TABS 20 MEQ TABLET.ER (FP) PO SCH (11:03)
[2023-02-03 14:43] VITALS: BP 149/81; PULSE 78; RESP 18; TEMP 98.1
== END 2023-02-03 14:47 | DRG 871 ==
LOC: JER 23:46 → JERBED 01-24 01:56 → J4W 01-24 07:10 → JICU 01-24 11:52 → J4W 01-29 17:23
PROVIDERS: ADMIT Internal Medicine; ATTEND Family Medicine
PROC: 5A1945Z Respiratory Ventilation, 24-96 Consecutive Hours (ICD-10-PCS; principal; 2023-01-24)
PROC: 0BH17EZ Insertion of Endotracheal Airway into Trachea, Via Natural or Artificial Opening (ICD-10-PCS; 2023-01-24)
PROC: 30233N1 Transfusion of Nonautologous Red Blood Cells into Peripheral Vein, Percutaneous Approach (ICD-10-PCS; 2023-01-31)
DX: A41.9 Sepsis, unspecified organism (principal); G92.8 Other toxic encephalopathy; J96.01 Acute respiratory failure with hypoxia; J96.02 Acute respiratory failure with hypercapnia; J18.9 Pneumonia, unspecified organism; N17.9 Acute kidney failure, unspecified; I50.32 Chronic diastolic (congestive) heart failure; N18.4 Chronic kidney disease, stage 4 (severe); I13.0 Hypertensive heart and chronic kidney disease with heart failure and stage 1 through stage 4 chronic kidney disease, or unspecified chronic kidney disease; E72.20 Disorder of urea cycle metabolism, unspecified; J81.1 Chronic pulmonary edema; E87.0 Hyperosmolality and hypernatremia; D68.9 Coagulation defect, unspecified; F03.90 Unspecified dementia, unspecified severity, without behavioral disturbance, psychotic disturbance, mood disturbance, and anxiety; E11.22 Type 2 diabetes mellitus with diabetic chronic kidney disease; D64.9 Anemia, unspecified; E78.5 Hyperlipidemia, unspecified; E78.00 Pure hypercholesterolemia, unspecified; I48.91 Unspecified atrial fibrillation; R45.1 Restlessness and agitation; R74.01 Elevation of levels of liver transaminase levels
CPT/HCPCS: 0241U-QW; 31500; 36415; 36430; 36600; 70450-TC; 71045-TC-FY; 71250-TC; 74230-TC-FY; 76705-TC; 80048; 80053; 80076; 81003; 82140; 82272; 82550; 82607; 82728; 82746; 82803; 82962; 83540; 83550; 83605; 83735; 84100; 84439; 84443; 84481; 84484; 85025; 85027; 85045; 85384; 85610; 85730; 86704; 86803; 86850; 86900; 86901; 86922; 87040; 87070; 87077; 87086; 87205; 87340; 87517; 87635; 87899; 92611-GN; 93005; 93010; 93306-TC; 94002; 97116-GP; 97162-GP; 99285-25; G0480; J1756; P9038; P9058

== ENCOUNTER 2023-02-03 22:03 | Inpatient (IN) | payer OTHER ==
[2023-02-03 22:15] VITALS: BMI 22.2
[2023-02-03 22:36] LABS: ARTERIAL BLD GAS O2 SATURATION 85.1 % (95-98); ARTERIAL BLOOD GAS BASE EXCESS 3.3 mmol/L (-2-2); ARTERIAL BLOOD GAS PO2 50.3 mmHg (80-100); ARTERIAL BLOOD GAS pH 7.396 (7.350-7.450); HEMATOCRIT 27.9 % (35.4-49); HEMOGLOBIN 8.6 GM/dL (11.7-16.9); MCH 27.7 pg (25.7-33.7); MCHC 30.9 g/dl (32.0-35.9); MEAN CELL VOLUME 89.5 fl (80-96); MEAN PLT VOLUME 7.8 fl (7.5-11.1); PLATELET COUNT 319 10^3/uL (134-434); RBC 3.12 M/mm3 (4.00-5.60); RDW 19.9 % (11.9-15.9); WHITE BLOOD COUNT 17.6 K/mm3 (4.0-10.0)
[2023-02-03 22:37] LABS: ALLENS TEST POSITIVE
[2023-02-03 22:43] LABS: INR 1.46 (0.83-1.09); PROTHROMBIN TIME (PATIENT) 16.9 SEC (9.7-13.0)
[2023-02-03 22:46] LABS: ACTIVATED PTT 31.5 SECONDS (25.2-36.5)
[2023-02-03 23:00] LABS: ALBUMIN 2.1 g/dl (3.4-5.0); BLOOD UREA NITROGEN 46.6 mg/dL (7-18); MAGNESIUM 1.9 mg/dL (1.8-2.4)
[2023-02-03 23:03] LABS: CREATININE 2.5 mg/dL (0.55-1.3)
[2023-02-03 23:04] LABS: BILIRUBIN,TOTAL 0.3 mg/dL (0.2-1); TOT PROT 6.3 g/dl (6.4-8.2)
[2023-02-03] MEDS ORDERED: VANCOMYCIN 1 GM in D5W (PRE-DOCKED) 1,000 MG/250 ML (RESTRICTED TO ID ONLY IVPB ONE (23:06)
[2023-02-03] MEDS ORDERED: CEFEPIME HCL/D5W 1 GM/50 ML BAG IVPB ONE (23:06)
[2023-02-03] MEDS ORDERED: VANCOMYCIN/WATER FOR INJ (PEG) 1,000 MG/200 ML BAG IVPB ONE (23:10)
[2023-02-03] MEDS ORDERED: CEFEPIME 1 GM/100 ML BAG IVPB ONE (23:11)
[2023-02-03 23:22] LABS: N-TERMINAL BNP 54045.3 pg/ml (5-450)
[2023-02-03 23:28] LABS: ANISOCYTOSIS 1+; MACROCYTOSIS 0; PLATELET ESTIMATE NORMAL
[2023-02-03] MEDS ORDERED: FUROSEMIDE 40 MG/4 ML INJECTABLE VIAL IVPUSH ONE (23:35)
[2023-02-03] MEDS ORDERED: FUROSEMIDE 40 MG/4 ML INJECTABLE VIAL ONE (23:45)
[2023-02-04] MEDS ORDERED: ACETAMINOPHEN 325 MG TABLET (FP) PO PRN (06:16)
[2023-02-04] MEDS ORDERED: CEFEPIME 2 GM in DEXTROSE 5%-WATER 100 ML IVPB SCH (06:30)
[2023-02-04] MEDS: LEVALBUTEROL HCL 0.31 MG/3 ML VIAL.NEB IH SCH ×3 (07:50→20:53)
[2023-02-04 08:05] LABS: HEMATOCRIT 26.1 % (35.4-49); HEMOGLOBIN 8.1 GM/dL (11.7-16.9); MCH 28.2 pg (25.7-33.7); MCHC 31.1 g/dl (32.0-35.9); MEAN CELL VOLUME 90.8 fl (80-96); MEAN PLT VOLUME 8.5 fl (7.5-11.1); PLATELET COUNT 296 10^3/uL (134-434); RBC 2.88 M/mm3 (4.00-5.60); RDW 20.1 % (11.9-15.9); WHITE BLOOD COUNT 15.1 K/mm3 (4.0-10.0)
[2023-02-04 08:18] LABS: POTASSIUM 3.7 mmol/L (3.5-5.1)
[2023-02-04 08:24] LABS: CALCIUM 8.8 mg/dL (8.5-10.1); CREATININE 2.4 mg/dL (0.55-1.3)
[2023-02-04 08:25] LABS: BLOOD UREA NITROGEN 44.8 mg/dL (7-18)
[2023-02-04] MEDS: KETOROLAC TROMETHAMINE 0.5% EYE DROP 1 DROP DROPS OS SCH ×5 (09:57→22:06)
[2023-02-04] MEDS: SERTRALINE HCL 50 MG TABLET (FP) PO SCH (09:59)
[2023-02-04] MEDS: FERROUS SO4 325 MG TABLET (FP) PO SCH (09:59)
[2023-02-04] MEDS: NEBIVOLOL 5 MG TABLET (FP) PO SCH (09:59)
[2023-02-04] MEDS: CALCITRIOL 0.25 MCG CAPSULE (FP) PO SCH (09:59)
[2023-02-04] MEDS: amLODIPine BESYLATE 5 MG TABLET (FP) PO SCH (09:59)
[2023-02-04] MEDS: prednisoLONE ACETATE 1% OPHTH SUSP 5 ML BOTTLE OS SCH ×5 (09:59→22:06)
[2023-02-04] MEDS: guaiFENesin 600 MG TABLET.ER (FP) PO SCH ×2 (09:59→22:04)
[2023-02-04] MEDS: PANTOPRAZOLE 40 MG TABLET PO SCH ×2 (09:59→22:04)
[2023-02-04] MEDS ORDERED: FUROSEMIDE 40 MG TABLET (FP) PO SCH (10:00)
[2023-02-04 10:36] LABS: ANISOCYTOSIS 2+; MACROCYTOSIS 0
[2023-02-04] MEDS: FUROSEMIDE 40 MG/4 ML INJECTABLE VIAL IVPUSH SCH (13:19)
[2023-02-04] MEDS: CEFEPIME 1 GM in DEXTROSE 5%-WATER - 50 ML IVPB SCH (16:42)
[2023-02-04] MEDS ORDERED: VANCOMYCIN/WATER FOR INJ (PEG) 1,000 MG/200 ML BAG IVPB SCH (22:00)
[2023-02-04] MEDS ORDERED: VANCOMYCIN 1 GM in D5W (PRE-DOCKED) 1,000 MG/250 ML (RESTRICTED TO ID ONLY IVPB SCH (22:00)
[2023-02-05] MEDS ORDERED: CEFEPIME 2 GM in DEXTROSE 5%-WATER 100 ML IVPB SCH ×2
[2023-02-05] MEDS: CEFEPIME 1 GM in DEXTROSE 5%-WATER - 50 ML IVPB SCH ×2 (05:11→15:42)
[2023-02-05 07:30] LABS: BASO % 0.2 % (0-2.0); EOS % 1.3 % (0-4.5); HEMATOCRIT 26.1 % (35.4-49); HEMOGLOBIN 8.1 GM/dL (11.7-16.9); MCH 28.5 pg (25.7-33.7); MCHC 31.2 g/dl (32.0-35.9); MEAN CELL VOLUME 91.5 fl (80-96); MEAN PLT VOLUME 8.7 fl (7.5-11.1); MONO % 3.5 % (3.8-10.2); PLATELET COUNT 277 10^3/uL (134-434); RBC 2.85 M/mm3 (4.00-5.60); RDW 20.4 % (11.9-15.9); WHITE BLOOD COUNT 12.6 K/mm3 (4.0-10.0)
[2023-02-05 07:41] LABS: POTASSIUM 3.9 mmol/L (3.5-5.1)
[2023-02-05 07:48] LABS: CALCIUM 9.1 mg/dL (8.5-10.1)
[2023-02-05 07:49] LABS: BLOOD UREA NITROGEN 48.2 mg/dL (7-18)
[2023-02-05 07:53] LABS: CREATININE 2.5 mg/dL (0.55-1.3)
[2023-02-05] MEDS: LEVALBUTEROL HCL 0.31 MG/3 ML VIAL.NEB IH SCH ×3 (08:35→21:38)
[2023-02-05] MEDS: CALCITRIOL 0.25 MCG CAPSULE (FP) PO SCH (09:21)
[2023-02-05] MEDS: NEBIVOLOL 5 MG TABLET (FP) PO SCH (09:21)
[2023-02-05] MEDS: amLODIPine BESYLATE 5 MG TABLET (FP) PO SCH (09:21)
[2023-02-05] MEDS: FERROUS SO4 325 MG TABLET (FP) PO SCH (09:21)
[2023-02-05] MEDS: PANTOPRAZOLE 40 MG TABLET PO SCH ×2 (09:21→22:43)
[2023-02-05] MEDS: FUROSEMIDE 40 MG/4 ML INJECTABLE VIAL IVPUSH SCH (09:22)
[2023-02-05] MEDS: KETOROLAC TROMETHAMINE 0.5% EYE DROP 1 DROP DROPS OS SCH ×4 (09:22→22:45)
[2023-02-05] MEDS: guaiFENesin 600 MG TABLET.ER (FP) PO SCH ×2 (09:22→22:43)
[2023-02-05] MEDS: SERTRALINE HCL 50 MG TABLET (FP) PO SCH (09:22)
[2023-02-05] MEDS: prednisoLONE ACETATE 1% OPHTH SUSP 5 ML BOTTLE OS SCH ×4 (09:23→22:45)
[2023-02-05] MEDS ORDERED: VANCOMYCIN/WATER FOR INJ (PEG) 1,000 MG/200 ML BAG IVPB ONE (14:15)
[2023-02-06] MEDS: CEFEPIME 1 GM in DEXTROSE 5%-WATER - 50 ML IVPB SCH ×2 (03:54→16:24)
[2023-02-06] MEDS: LEVALBUTEROL HCL 0.31 MG/3 ML VIAL.NEB IH SCH ×3 (08:25→20:51)
[2023-02-06] MEDS: SERTRALINE HCL 50 MG TABLET (FP) PO SCH (11:13)
[2023-02-06] MEDS: FUROSEMIDE 40 MG/4 ML INJECTABLE VIAL IVPUSH SCH (11:13)
[2023-02-06] MEDS: guaiFENesin 600 MG TABLET.ER (FP) PO SCH ×2 (11:13→22:05)
[2023-02-06] MEDS: CALCITRIOL 0.25 MCG CAPSULE (FP) PO SCH (11:13)
[2023-02-06] MEDS: NEBIVOLOL 5 MG TABLET (FP) PO SCH (11:13)
[2023-02-06] MEDS: FERROUS SO4 325 MG TABLET (FP) PO SCH (11:14)
[2023-02-06] MEDS: prednisoLONE ACETATE 1% OPHTH SUSP 5 ML BOTTLE OS SCH ×5 (11:14→22:06)
[2023-02-06] MEDS: amLODIPine BESYLATE 5 MG TABLET (FP) PO SCH (11:14)
[2023-02-06] MEDS: PANTOPRAZOLE 40 MG TABLET PO SCH ×2 (11:14→22:06)
[2023-02-06] MEDS: KETOROLAC TROMETHAMINE 0.5% EYE DROP 1 DROP DROPS OS SCH ×5 (11:15→22:05)
[2023-02-07] MEDS: CEFEPIME 1 GM in DEXTROSE 5%-WATER - 50 ML IVPB SCH ×2 (03:36→16:43)
[2023-02-07 07:50] LABS: HEMATOCRIT 25.4 % (35.4-49); HEMOGLOBIN 7.7 GM/dL (11.7-16.9); MCH 27.9 pg (25.7-33.7); MCHC 30.1 g/dl (32.0-35.9); MEAN CELL VOLUME 92.5 fl (80-96); MEAN PLT VOLUME 8.5 fl (7.5-11.1); PLATELET COUNT 264 10^3/uL (134-434); RBC 2.75 M/mm3 (4.00-5.60); RDW 20.6 % (11.9-15.9); WHITE BLOOD COUNT 11.2 K/mm3 (4.0-10.0)
[2023-02-07 08:11] LABS: POTASSIUM 4.1 mmol/L (3.5-5.1)
[2023-02-07 08:13] LABS: CALCIUM 8.8 mg/dL (8.5-10.1)
[2023-02-07 08:14] LABS: ALBUMIN 1.8 g/dl (3.4-5.0); BLOOD UREA NITROGEN 56.7 mg/dL (7-18)
[2023-02-07 08:19] LABS: BILIRUBIN,TOTAL 0.3 mg/dL (0.2-1); TOT PROT 5.8 g/dl (6.4-8.2)
[2023-02-07 09:50] LABS: ANISOCYTOSIS 0; MACROCYTOSIS 0
[2023-02-07] MEDS: FERROUS SO4 325 MG TABLET (FP) PO SCH (10:38)
[2023-02-07] MEDS: prednisoLONE ACETATE 1% OPHTH SUSP 5 ML BOTTLE OS SCH ×4 (10:38→22:04)
[2023-02-07] MEDS: amLODIPine BESYLATE 5 MG TABLET (FP) PO SCH (10:38)
[2023-02-07] MEDS: PANTOPRAZOLE 40 MG TABLET PO SCH ×2 (10:38→22:04)
[2023-02-07] MEDS: NEBIVOLOL 5 MG TABLET (FP) PO SCH (10:38)
[2023-02-07] MEDS: CALCITRIOL 0.25 MCG CAPSULE (FP) PO SCH (10:38)
[2023-02-07] MEDS: SERTRALINE HCL 50 MG TABLET (FP) PO SCH (10:39)
[2023-02-07] MEDS: guaiFENesin 600 MG TABLET.ER (FP) PO SCH ×2 (10:40→22:04)
[2023-02-07] MEDS: KETOROLAC TROMETHAMINE 0.5% EYE DROP 1 DROP DROPS OS SCH ×4 (10:40→22:04)
[2023-02-07] MEDS: LEVALBUTEROL HCL 0.31 MG/3 ML VIAL.NEB IH SCH ×3 (11:36→19:43)
[2023-02-08] MEDS: CEFEPIME 1 GM in DEXTROSE 5%-WATER - 50 ML IVPB SCH ×2 (04:26→16:02)
[2023-02-08 07:29] LABS: BASO % 0.1 % (0-2.0); EOS % 0.4 % (0-4.5); HEMATOCRIT 32.8 % (35.4-49); HEMOGLOBIN 10.3 GM/dL (11.7-16.9); LYMPH % 6.3 % (8-40); MCHC 31.5 g/dl (32.0-35.9); MEAN CELL VOLUME 92.2 fl (80-96); MEAN PLT VOLUME 8.4 fl (7.5-11.1); MONO % 3.6 % (3.8-10.2); NEUT % 89.6 % (42.8-82.8); PLATELET COUNT 229 10^3/uL (134-434); RBC 3.56 M/mm3 (4.00-5.60); RDW 19.3 % (11.9-15.9); WHITE BLOOD COUNT 10.9 K/mm3 (4.0-10.0)
[2023-02-08] MEDS: LEVALBUTEROL HCL 0.31 MG/3 ML VIAL.NEB IH SCH ×3 (07:40→22:36)
[2023-02-08 08:10] LABS: POTASSIUM 4.1 mmol/L (3.5-5.1)
[2023-02-08 08:13] LABS: BLOOD UREA NITROGEN 63.3 mg/dL (7-18)
[2023-02-08 08:16] LABS: CREATININE 3.1 mg/dL (0.55-1.3)
[2023-02-08 08:17] LABS: BILIRUBIN,TOTAL 0.4 mg/dL (0.2-1); TOT PROT 6.3 g/dl (6.4-8.2)
[2023-02-08] MEDS: PANTOPRAZOLE 40 MG TABLET PO SCH ×2 (10:01→22:52)
[2023-02-08] MEDS: FERROUS SO4 325 MG TABLET (FP) PO SCH (10:01)
[2023-02-08] MEDS: SERTRALINE HCL 50 MG TABLET (FP) PO SCH (10:01)
[2023-02-08] MEDS: guaiFENesin 600 MG TABLET.ER (FP) PO SCH ×2 (10:01→22:52)
[2023-02-08] MEDS: CALCITRIOL 0.25 MCG CAPSULE (FP) PO SCH (10:01)
[2023-02-08] MEDS: amLODIPine BESYLATE 5 MG TABLET (FP) PO SCH (10:01)
[2023-02-08] MEDS: FUROSEMIDE 40 MG TABLET (FP) PO SCH (10:01)
[2023-02-08] MEDS: NEBIVOLOL 5 MG TABLET (FP) PO SCH (10:01)
[2023-02-08] MEDS: prednisoLONE ACETATE 1% OPHTH SUSP 5 ML BOTTLE OS SCH ×5 (10:02→22:53)
[2023-02-08] MEDS: KETOROLAC TROMETHAMINE 0.5% EYE DROP 1 DROP DROPS OS SCH ×5 (10:02→22:53)
[2023-02-09] MEDS: CEFEPIME 1 GM in DEXTROSE 5%-WATER - 50 ML IVPB SCH ×2 (05:04→17:50)
[2023-02-09] MEDS: FUROSEMIDE 40 MG TABLET (FP) PO SCH (10:34)
[2023-02-09] MEDS: NEBIVOLOL 5 MG TABLET (FP) PO SCH (10:34)
[2023-02-09] MEDS: PANTOPRAZOLE 40 MG TABLET PO SCH ×2 (10:34→22:00)
[2023-02-09] MEDS: guaiFENesin 600 MG TABLET.ER (FP) PO SCH ×3 (10:34→22:00)
[2023-02-09] MEDS: FERROUS SO4 325 MG TABLET (FP) PO SCH (10:34)
[2023-02-09] MEDS: SERTRALINE HCL 50 MG TABLET (FP) PO SCH (10:35)
[2023-02-09] MEDS: amLODIPine BESYLATE 5 MG TABLET (FP) PO SCH (10:35)
[2023-02-09] MEDS: CALCITRIOL 0.25 MCG CAPSULE (FP) PO SCH (10:35)
[2023-02-09] MEDS: prednisoLONE ACETATE 1% OPHTH SUSP 5 ML BOTTLE OS SCH ×5 (10:35→22:15)
[2023-02-09] MEDS: KETOROLAC TROMETHAMINE 0.5% EYE DROP 1 DROP DROPS OS SCH ×5 (10:36→22:45)
[2023-02-09] MEDS ORDERED: LEVALBUTEROL HCL 0.63 MG/3 ML VIAL.NEB. IH PRN ×2 (10:38→11:22)
[2023-02-09] MEDS ORDERED: ALBUTEROL SO4 2.5/IPRATROPIUM 0.5 INH SOL 3 ML VIAL.NEB. NEB PRN (10:39)
[2023-02-09 10:50] LABS: HEMATOCRIT 29.4 % (35.4-49); HEMOGLOBIN 9.1 GM/dL (11.7-16.9); MCH 28.5 pg (25.7-33.7); MCHC 30.8 g/dl (32.0-35.9); MEAN CELL VOLUME 92.4 fl (80-96); MEAN PLT VOLUME 8.6 fl (7.5-11.1); PLATELET COUNT 249 10^3/uL (134-434); RBC 3.18 M/mm3 (4.00-5.60); RDW 19.7 % (11.9-15.9); WHITE BLOOD COUNT 8.7 K/mm3 (4.0-10.0)
[2023-02-09 11:08] LABS: POTASSIUM 4.3 mmol/L (3.5-5.1)
[2023-02-09 11:15] LABS: BLOOD UREA NITROGEN 64.5 mg/dL (7-18)
[2023-02-09 11:18] LABS: CREATININE 3.3 mg/dL (0.55-1.3)
[2023-02-09 11:19] LABS: TOT PROT 6.2 g/dl (6.4-8.2)
[2023-02-09 11:20] LABS: BILIRUBIN,TOTAL 0.4 mg/dL (0.2-1)
[2023-02-09 11:40] LABS: ARTERIAL BLD GAS O2 SATURATION 86.3 % (95-98); ARTERIAL BLOOD GAS BASE EXCESS -2.3 mmol/L (-2-2); ARTERIAL BLOOD GAS PO2 65.4 mmHg (80-100); ARTERIAL BLOOD GAS pH 7.172 (7.350-7.450)
[2023-02-09 11:42] LABS: ALLENS TEST POSITIVE
[2023-02-09 11:48] LABS: ANISOCYTOSIS 1+; MACROCYTOSIS 1+
[2023-02-09] MEDS: LEVALBUTEROL HCL 0.63 MG/3 ML VIAL.NEB. IH SCH ×2 (12:55→19:42)
[2023-02-09 16:54] LABS: ARTERIAL BLD GAS O2 SATURATION 57.1 % (95-98); ARTERIAL BLOOD GAS BASE EXCESS 0.1 mmol/L (-2-2); ARTERIAL BLOOD GAS PO2 38.2 mmHg (80-100)
[2023-02-09 16:55] LABS: ALLENS TEST POSITIVE
[2023-02-09 16:56] LABS: VENT MODE IPAP 14; VENT RATE 18
[2023-02-09] MEDS: APIXABAN 2.5 MG TABLET PO SCH (22:00)
[2023-02-09 22:21] LABS: ARTERIAL BLD GAS O2 SATURATION 99.3 % (95-98); ARTERIAL BLOOD GAS PO2 230.4 mmHg (80-100)
[2023-02-09 22:22] LABS: VENT MODE S/T; VENT RATE 20
[2023-02-09 22:25] LABS: ARTERIAL BLOOD GAS pH 7.197 (7.350-7.450)
[2023-02-10] MEDS: CEFEPIME 1 GM in DEXTROSE 5%-WATER - 50 ML IVPB SCH ×2 (05:00→16:36)
[2023-02-10] MEDS: LEVALBUTEROL HCL 0.63 MG/3 ML VIAL.NEB. IH SCH (07:46)
[2023-02-10 09:15] LABS: POTASSIUM 3.8 mmol/L (3.5-5.1)
[2023-02-10 09:20] LABS: CALCIUM 9.2 mg/dL (8.5-10.1)
[2023-02-10 09:21] LABS: BLOOD UREA NITROGEN 66.2 mg/dL (7-18)
[2023-02-10 09:24] LABS: CREATININE 3.3 mg/dL (0.55-1.3)
[2023-02-10] MEDS: CALCITRIOL 0.25 MCG CAPSULE (FP) PO SCH ×2 (10:47→11:02)
[2023-02-10] MEDS: APIXABAN 2.5 MG TABLET PO SCH ×3 (10:48→21:20)
[2023-02-10] MEDS: FERROUS SO4 325 MG TABLET (FP) PO SCH ×2 (10:48→11:01)
[2023-02-10] MEDS: PANTOPRAZOLE 40 MG TABLET PO SCH ×3 (10:48→21:20)
[2023-02-10] MEDS: NEBIVOLOL 5 MG TABLET (FP) PO SCH ×2 (10:48→11:00)
[2023-02-10] MEDS: guaiFENesin 600 MG TABLET.ER (FP) PO SCH ×3 (10:48→21:19)
[2023-02-10] MEDS: amLODIPine BESYLATE 5 MG TABLET (FP) PO SCH ×2 (10:48→11:02)
[2023-02-10] MEDS: KETOROLAC TROMETHAMINE 0.5% EYE DROP 1 DROP DROPS OS SCH ×4 (10:49→21:18)
[2023-02-10] MEDS: FUROSEMIDE 40 MG TABLET (FP) PO SCH ×2 (10:49→11:01)
[2023-02-10] MEDS: prednisoLONE ACETATE 1% OPHTH SUSP 5 ML BOTTLE OS SCH ×4 (10:49→21:18)
[2023-02-10 11:54] LABS: ARTERIAL BLD GAS O2 SATURATION 92.3 % (95-98); ARTERIAL BLOOD GAS BASE EXCESS -0.3 mmol/L (-2-2); ARTERIAL BLOOD GAS PO2 77.1 mmHg (80-100); ARTERIAL BLOOD GAS pH 7.222 (7.350-7.450)
[2023-02-10 11:55] LABS: ALLENS TEST POSITIVE
[2023-02-10 11:56] LABS: VENT MODE S/T; VENT RATE 22
[2023-02-10] MEDS: FUROSEMIDE 40 MG/4 ML INJECTABLE VIAL IVPUSH SCH (12:59)
[2023-02-10] MEDS: AMINO ACIDS 4.25%/D5W 1,000 ML IV SCH (12:59)
[2023-02-11] MEDS: CEFEPIME 1 GM in DEXTROSE 5%-WATER - 50 ML IVPB SCH ×2 (03:22→16:46)
[2023-02-11] MEDS ORDERED: METOPROLOL TARTRATE 5 MG/5 ML VIAL IVPUSH PRN (09:47)
[2023-02-11] MEDS: KETOROLAC TROMETHAMINE 0.5% EYE DROP 1 DROP DROPS OS SCH ×4 (10:52→23:17)
[2023-02-11] MEDS: prednisoLONE ACETATE 1% OPHTH SUSP 5 ML BOTTLE OS SCH ×4 (10:52→23:17)
[2023-02-11] MEDS: FUROSEMIDE 40 MG/4 ML INJECTABLE VIAL IVPUSH SCH (10:52)
[2023-02-11] MEDS: PANTOPRAZOLE SODIUM 40 MG VIAL IVPUSH SCH ×2 (10:52→23:17)
[2023-02-11] MEDS: APIXABAN 2.5 MG TABLET PO SCH ×2 (13:02→23:16)
[2023-02-11] MEDS: LEVALBUTEROL HCL 0.63 MG/3 ML VIAL.NEB. IH SCH ×3 (13:34→20:00)
[2023-02-11] MEDS: AMINO ACIDS 4.25%/D5W 1,000 ML IV SCH (13:52)
[2023-02-12] MEDS: CEFEPIME 1 GM in DEXTROSE 5%-WATER - 50 ML IVPB SCH ×2 (03:48→16:59)
[2023-02-12] MEDS: LEVALBUTEROL HCL 0.63 MG/3 ML VIAL.NEB. IH SCH ×3 (07:45→20:49)
[2023-02-12 08:22] LABS: CALCIUM 8.8 mg/dL (8.5-10.1)
[2023-02-12 08:23] LABS: BLOOD UREA NITROGEN 79.1 mg/dL (7-18)
[2023-02-12 08:26] LABS: CREATININE 3.3 mg/dL (0.55-1.3)
[2023-02-12 08:28] LABS: BILIRUBIN,TOTAL 0.4 mg/dL (0.2-1); TOT PROT 6.5 g/dl (6.4-8.2)
[2023-02-12] MEDS: KETOROLAC TROMETHAMINE 0.5% EYE DROP 1 DROP DROPS OS SCH ×4 (10:11→23:17)
[2023-02-12] MEDS: FUROSEMIDE 40 MG/4 ML INJECTABLE VIAL IVPUSH SCH (10:11)
[2023-02-12] MEDS: APIXABAN 2.5 MG TABLET PO SCH ×3 (10:11→23:11)
[2023-02-12] MEDS: PANTOPRAZOLE SODIUM 40 MG VIAL IVPUSH SCH ×2 (10:11→23:18)
[2023-02-12] MEDS: prednisoLONE ACETATE 1% OPHTH SUSP 5 ML BOTTLE OS SCH ×4 (10:12→23:17)
[2023-02-12] MEDS ORDERED: POTASSIUM CHLORIDE ORAL LIQUID 20 MEQ/15 ML PO ONE (12:37)
[2023-02-12] MEDS: KCL 10 MEQ IVPB 10 MEQ/100 ML INFUS.BAG IVPB SCH ×2 (13:30→16:59)
[2023-02-12] MEDS: POTASSIUM CHLORIDE 10 MEQ in AMINO ACIDS 4.25%/D5W 1,000 ML IV SCH (14:20)
[2023-02-12] MEDS ORDERED: KCL 10 MEQ IVPB 10 MEQ/100 ML INFUS.BAG IVPB ONE (19:00)
[2023-02-13] MEDS: CEFEPIME 1 GM in DEXTROSE 5%-WATER - 50 ML IVPB SCH ×2 (05:01→15:51)
[2023-02-13] MEDS: LEVALBUTEROL HCL 0.63 MG/3 ML VIAL.NEB. IH SCH ×3 (08:05→20:26)
[2023-02-13] MEDS: FUROSEMIDE 40 MG/4 ML INJECTABLE VIAL IVPUSH SCH (09:06)
[2023-02-13] MEDS: PANTOPRAZOLE SODIUM 40 MG VIAL IVPUSH SCH ×2 (09:06→21:42)
[2023-02-13] MEDS: APIXABAN 2.5 MG TABLET PO SCH ×2 (09:07→21:43)
[2023-02-13] MEDS: prednisoLONE ACETATE 1% OPHTH SUSP 5 ML BOTTLE OS SCH ×4 (09:07→21:43)
[2023-02-13] MEDS: KETOROLAC TROMETHAMINE 0.5% EYE DROP 1 DROP DROPS OS SCH ×4 (09:07→21:43)
[2023-02-13 10:00] LABS: POTASSIUM 3.6 mmol/L (3.5-5.1)
[2023-02-13 10:03] LABS: ALBUMIN 1.7 g/dl (3.4-5.0); CALCIUM 9.4 mg/dL (8.5-10.1); MAGNESIUM 2.3 mg/dL (1.8-2.4)
[2023-02-13 10:08] LABS: BILIRUBIN,TOTAL 0.5 mg/dL (0.2-1); TOT PROT 6.1 g/dl (6.4-8.2)
[2023-02-13] MEDS: POTASSIUM CHLORIDE 10 MEQ in AMINO ACIDS 4.25%/D5W 1,000 ML IV SCH (14:49)
[2023-02-14] MEDS: CEFEPIME 1 GM in DEXTROSE 5%-WATER - 50 ML IVPB SCH ×2 (03:51→16:57)
[2023-02-14 07:59] LABS: CHLORIDE 102 mmol/L (98-107); POTASSIUM 3.8 mmol/L (3.5-5.1); SODIUM 138 mmol/L (136-145)
[2023-02-14] MEDS: LEVALBUTEROL HCL 0.63 MG/3 ML VIAL.NEB. IH SCH (08:03)
[2023-02-14 08:13] LABS: CREATININE 4.6 mg/dL (0.55-1.3); SGOT/AST 9 U/L (15-37); SGPT/ALT 12 U/L (13-61)
[2023-02-14 08:14] LABS: BILIRUBIN,TOTAL 0.4 mg/dL (0.2-1)
[2023-02-14 08:15] LABS: TOT PROT 5.8 g/dl (6.4-8.2)
[2023-02-14 08:16] LABS: ALK PHOS 71 U/L (45-117); CALCIUM 8.9 mg/dL (8.5-10.1)
[2023-02-14 08:17] LABS: ALBUMIN 1.6 g/dl (3.4-5.0); ANION GAP 11 MMOL/L (8-16); CO2 26 mmol/L (21-32); GLUCOSE,RANDOM 203 mg/dL (74-106)
[2023-02-14 08:19] LABS: BLOOD UREA NITROGEN 117.8 mg/dL (7-18)
[2023-02-14] MEDS: FUROSEMIDE 40 MG/4 ML INJECTABLE VIAL IVPUSH SCH (09:31)
[2023-02-14] MEDS: APIXABAN 2.5 MG TABLET PO SCH ×2 (09:31→21:07)
[2023-02-14] MEDS: PANTOPRAZOLE SODIUM 40 MG VIAL IVPUSH SCH ×2 (09:31→21:15)
[2023-02-14] MEDS: prednisoLONE ACETATE 1% OPHTH SUSP 5 ML BOTTLE OS SCH ×4 (09:34→21:15)
[2023-02-14] MEDS: KETOROLAC TROMETHAMINE 0.5% EYE DROP 1 DROP DROPS OS SCH ×4 (09:35→21:15)
[2023-02-14] MEDS: POTASSIUM CHLORIDE 10 MEQ in AMINO ACIDS 4.25%/D5W 1,000 ML IV SCH (14:25)
[2023-02-15] MEDS: CEFEPIME 1 GM in DEXTROSE 5%-WATER - 50 ML IVPB SCH (03:05)
[2023-02-15 09:48] VITALS: PULSE 96; TEMP 97.1
[2023-02-15] MEDS: KETOROLAC TROMETHAMINE 0.5% EYE DROP 1 DROP DROPS OS SCH (10:14)
[2023-02-15] MEDS: APIXABAN 2.5 MG TABLET PO SCH (10:14)
[2023-02-15] MEDS: PANTOPRAZOLE SODIUM 40 MG VIAL IVPUSH SCH (10:15)
[2023-02-15] MEDS: prednisoLONE ACETATE 1% OPHTH SUSP 5 ML BOTTLE OS SCH (10:15)
[2023-02-15] MEDS ORDERED: MORPHINE SULFATE/0.9% NACL/PF 100 MG/100 ML BAG IVPB SCH (13:15)
[2023-02-15 23:18] VITALS: RESP 6
[2023-02-15 23:19] VITALS: BP 50/38
== END 2023-02-15 20:45 | disposition expired | DRG 193 ==
LOC: JER 22:03 → JERBED 23:06 → J4S 02-04 00:33
PROVIDERS: ADMIT Internal Medicine; ATTEND Family Medicine
DX: J18.9 Pneumonia, unspecified organism (principal); I50.33 Acute on chronic diastolic (congestive) heart failure; J96.21 Acute and chronic respiratory failure with hypoxia; J96.22 Acute and chronic respiratory failure with hypercapnia; I24.8 Other forms of acute ischemic heart disease; I13.0 Hypertensive heart and chronic kidney disease with heart failure and stage 1 through stage 4 chronic kidney disease, or unspecified chronic kidney disease; N18.4 Chronic kidney disease, stage 4 (severe); E87.0 Hyperosmolality and hypernatremia; F03.90 Unspecified dementia, unspecified severity, without behavioral disturbance, psychotic disturbance, mood disturbance, and anxiety; I48.0 Paroxysmal atrial fibrillation; E78.5 Hyperlipidemia, unspecified; E11.22 Type 2 diabetes mellitus with diabetic chronic kidney disease; I46.9 Cardiac arrest, cause unspecified; R77.8 Other specified abnormalities of plasma proteins; R62.7 Adult failure to thrive; Z68.22 Body mass index [BMI] 22.0-22.9, adult; R47.02 Dysphasia; M10.9 Gout, unspecified; I07.1 Rheumatic tricuspid insufficiency; I25.119 Atherosclerotic heart disease of native coronary artery with unspecified angina pectoris; E87.6 Hypokalemia; D64.9 Anemia, unspecified
CPT/HCPCS: 0241U-QW; 36415; 36430; 36600; 71045-TC-FY; 80048; 80053; 82803; 83605; 83735; 83880; 84484; 85025; 85610; 85730; 86850; 86900; 86901; 86922; 87040; 87081; 87804; 93005; 93010; 94640; 94660; 97162-GP; 99291; G0480; P9058